=== PATIENT | female | born 1950 | race Caucasian/White ===

== ENCOUNTER → 2019-02-04 | Outpatient (CLI) | payer MEDICARE, MEDICAID ==
--- NOTE | 2019-02-04 14:35 | RADIOLOGY REPORT (SQ) ---
EXAM DESCRIPTION: CT CHEST WITHOUT COMPLETED DATE/TIME: 02/04/2019 1:51 pm REASON FOR STUDY: R91.8 OTHER NONSPECIFIC ABNORMAL FINDING OF LUNG FIELD R91.8 OTHER NONSPECIFIC AB NORMAL FINDING OF LUNG FIELD COMPARISON: CT chest 04/01/2014, 02/12/2013 TECHNIQUE: CT scan performed of the chest without intravenous contrast. Images reviewed with lung, soft tissue and bone windows. Reconstructed coronal and sagittal MPR images reviewed. All images st ored on PACS. All CT scanners at this facility use dose modulation, iterative reconstruction, and/or weight based d osing when appropriate to reduce radiation dose to as low as reasonably achievable (ALARA). [facility]: Dose Right [facility]: CareDose [facility]: Dose Right [facility]: Teradose 4D [facility]: FeZo RADIATION DOSE: CT Rad equipment meets quality standard of care and radiation dose reduction techniq ues were employed. CTDIvol: 7.5 mGy. DLP: 282 mGy-cm. mGy. LIMITATIONS: No technical limitations. FINDINGS: LUNGS AND PLEURA: There is patchy consolidation in the right posterior costophrenic sulcus , atelectasis versus pneumonia. Remainder of the lungs are hyperinflated and hyperlucent from obstructive disease. No other infiltra sherrie. Biapical pleuroparenchymal scarring. Airways are patent. No pleural effusion. No pneumothora x. HILAR AND MEDIASTINAL STRUCTURES: No identified masses or abnormal nodes. No obvious aneurysm. HEART AND VASCULAR STRUCTURES: No aneurysm. No pericardial effusion. Coronary artery calcifications UPPER ABDOMEN: No significant findings. Limited exam. THYROID AND OTHER SOFT TISSUES: 1 cm cyst right lower pole thyroid BONES: Multiple old healed right lateral rib fractures HARDWARE: None in the chest. OTHER: No other significant findings. IMPRESSION: Right basilar airspace disease in the lateral and posterior costophrenic sulcus TECHNICAL DOCUMENTATION: JOB ID: [id number] Quality ID # [id number]: Final reports with documentation of one or more dose reduction techniques (e.g., Au tomated exposure control, adjustment of the mA and/or kV according to patient size, use of iterative reconstruction technique) 2010 [employer] All Rights Reserved Reading location - IP/workstation name: [email or web address]
== END ==
LOC: RAD 16:26
PROVIDERS: ATTEND Internal Medicine Critical Care Medicine
DX: R91.8 Other nonspecific abnormal finding of lung field (principal)
CPT/HCPCS: 71250

== ENCOUNTER → 2019-02-06 | Outpatient (CLI) | payer MEDICARE, MEDICAID ==
[2019-02-06 11:51] LABS: ABSOLUTE BASOPHILS # (AUTO) 0.1 10^3/uL (0.0-0.2); ABSOLUTE EOSINOPHILS # (AUTO) 0.7 10^3/uL (0.0-0.6); ABSOLUTE LYMPHOCYTES (AUTO) 1.5 10^3/uL (0.5-4.7); ABSOLUTE MONOCYTES (AUTO) 0.7 10^3/uL (0.1-1.4); ABSOLUTE NEUT (AUTO) 8.4 10^3/uL (1.7-8.2); BASOPHILS % (AUTO) 0.4 % (0-2); EOSINOPHILS % (AUTO) 5.8 % (0-6); HEMATOCRIT 37.8 % (36.0-47.0); HEMOGLOBIN 12.3 g/dL (12.0-15.5); LYMPHOCYTES % (AUTO) 12.9 % (13-45); MEAN CORPUSCULAR HEMOGLOBIN 31.7 pg (27.0-33.4); MEAN CORPUSCULAR HGB CONC 32.5 g/dL (32.0-36.0); MEAN CORPUSCULAR VOLUME 97 fl (80-97); MONOCYTES % (AUTO) 6.3 % (3-13); PLATELET COUNT 328 10^3/uL (150-450); RED BLOOD COUNT 3.88 10^6/uL (3.72-5.28); RED CELL DISTRIBUTION WIDTH 13.6 % (11.5-14.0); SEGMENTED NEUTROPHILS % (AUTO) 74.6 % (42-78); TOTAL CELLS COUNTED % (AUTO) 100 %; WHITE BLOOD COUNT 11.3 10^3/uL (4.0-10.5)
== END ==
LOC: LAB 11:26
PROVIDERS: ATTEND Internal Medicine Geriatric Medicine
DX: J15.9 Unspecified bacterial pneumonia (principal); J45.909 Unspecified asthma, uncomplicated; R06.09 Other forms of dyspnea; J43.9 Emphysema, unspecified; R09.02 Hypoxemia; R91.8 Other nonspecific abnormal finding of lung field; R91.1 Solitary pulmonary nodule
CPT/HCPCS: 36415; 82785; 85025

== ENCOUNTER 2019-03-28 16:18 | Inpatient (IN) | payer MEDICARE, MEDICAID ==
[2019-03-28 16:44] LABS: ARTERIAL BLOOD BASE EXCESS 14.4 mmol/L; ARTERIAL BLOOD H2CO3 2.54 mmol/L (1.05-1.35); ARTERIAL BLOOD HCO3 43.8 mmol/L (20-24); ARTERIAL BLOOD PH 7.33 (7.35-7.45); ARTERIAL BLOOD PO2 84.1 mmHg (80-100); ARTERIAL BLOOD TOTAL CO2 46.3 mmol/L (21-25)
[2019-03-28] MEDS ORDERED: NORMAL SALINE 1000 ML 1,000 ML IV ONE (16:45)
[2019-03-28 16:46] LABS: ARTERIAL BLOOD FIO2 60%
--- NOTE | 2019-03-28 16:47 | RADIOLOGY REPORT (SQ) ---
EXAM DESCRIPTION: CHEST SINGLE VIEW COMPLETED DATE/TIME: 03/28/2019 4:38 pm REASON FOR STUDY: resp arrest COMPARISON: 03/24/2019 NUMBER OF VIEWS: One view. TECHNIQUE: Single frontal radiographic image of the chest acquired. LIMITATIONS: None. FINDINGS: LUNGS AND PLEURA: Stable in appearance. No consolidation or effusions. Probable scarring in the apices. MEDIASTINUM AND HILAR STRUCTURES: Stable heart size and mediastinal structures. HEART AND VASCULAR STRUCTURES: Stable appearance. BONES: No acute findings. HARDWARE: None in the chest. OTHER: No other significant finding. IMPRESSION: No acute findings in the chest. TECHNICAL DOCUMENTATION: JOB ID: [id number] [employer]- All Rights Reserved Reading location - IP/workstation name: [email or web address]
[2019-03-28 16:48] LABS: ARTERIAL BLOOD PCO2 84.5 mmHg (35-45)
[2019-03-28 17:03] LABS: ALANINE AMINOTRANSFERASE 370 U/L (9-52); ALBUMIN 3.7 g/dL (3.5-5.0); ALKALINE PHOSPHATASE 70 U/L (38-126); ASPARTATE AMINO TRANSFERASE 275 U/L (14-36); BILIRUBIN,DIRECT 0.2 mg/dL (0.0-0.4); BILIRUBIN,TOTAL 0.5 mg/dL (0.2-1.3); BLOOD UREA NITROGEN 26 mg/dL (7-20); CALCIUM 7.5 mg/dL (8.4-10.2); CHLORIDE 89 mmol/L (98-107); CREATINE KINASE 22 U/L (30-135); GLUCOSE 121 mg/dL (75-110); POTASSIUM 5.6 mmol/L (3.6-5.0); SODIUM 140.1 mmol/L (137-145); TOTAL PROTEIN 6.3 g/dL (6.3-8.2)
[2019-03-28 17:05] LABS: ABSOLUTE BASOPHILS # (AUTO) 0.1 10^3/uL (0.0-0.2); ABSOLUTE EOSINOPHILS # (AUTO) 0.1 10^3/uL (0.0-0.6); ABSOLUTE LYMPHOCYTES (AUTO) 1.1 10^3/uL (0.5-4.7); ABSOLUTE MONOCYTES (AUTO) 1.3 10^3/uL (0.1-1.4); ABSOLUTE NEUT (AUTO) 13.1 10^3/uL (1.7-8.2); BASOPHILS % (AUTO) 0.5 % (0-2); EOSINOPHILS % (AUTO) 0.6 % (0-6); HEMATOCRIT 36.3 % (36.0-47.0); HEMOGLOBIN 11.4 g/dL (12.0-15.5); LYMPHOCYTES % (AUTO) 6.8 % (13-45); MEAN CORPUSCULAR HEMOGLOBIN 30.7 pg (27.0-33.4); MEAN CORPUSCULAR HGB CONC 31.4 g/dL (32.0-36.0); MEAN CORPUSCULAR VOLUME 98 fl (80-97); MONOCYTES % (AUTO) 8.5 % (3-13); PLATELET COUNT 288 10^3/uL (150-450); RED BLOOD COUNT 3.72 10^6/uL (3.72-5.28); RED CELL DISTRIBUTION WIDTH 13.9 % (11.5-14.0); SEGMENTED NEUTROPHILS % (AUTO) 83.6 % (42-78); TOTAL CELLS COUNTED % (AUTO) 100 %; WHITE BLOOD COUNT 15.7 10^3/uL (4.0-10.5)
[2019-03-28 17:15] LABS: CREATINE KINASE MB 0.52 ng/mL (<4.55); TROPONIN I 0.031 ng/mL
[2019-03-28 17:16] LABS: ANION GAP 7 (5-19)
[2019-03-28 17:17] LABS: CARBON DIOXIDE 44 mmol/L (22-30)
[2019-03-28 17:21] LABS: APPEARANCE,URINE SLIGHTLY-CLOUDY; BILIRUBIN,URINE NEGATIVE (NEGATIVE); COLOR,URINE YELLOW; GLUCOSE, URINE NEGATIVE (NEGATIVE); KETONES,URINE NEGATIVE (NEGATIVE); LEUKOCYTE ESTERASE,URINE NEGATIVE (NEGATIVE); NITRITE,URINE NEGATIVE (NEGATIVE); PROTEIN,URINE >=500 mg/dL (NEGATIVE); URINE SPECIFIC GRAVITY 1.022; UROBILINOGEN,URINE NEGATIVE mg/dL (<2.0)
[2019-03-28] MEDS ORDERED: METHYLPREDNISOLONE INJ 125 MG/2 ML SDV IV ONE (18:10)
[2019-03-28] MEDS ORDERED: IPRATROPIUM/ALBUTEROL 0.5-2.5 MG/3 ML AMPUL NEB ONE (18:10)
--- NOTE | 2019-03-28 19:05 | RADIOLOGY REPORT (SQ) ---
EXAM DESCRIPTION: CT ABD/PELVIS NO ORAL OR IV COMPLETED DATE/TIME: 03/28/2019 6:50 pm REASON FOR STUDY: RUQ trauma 5days ago, new LFT elevation COMPARISON: None. TECHNIQUE: CT scan of the abdomen and pelvis performed without intravenous or oral contrast. Images reviewed with lung, soft tissue, and bone windows. Reconstructed coronal and sagittal MPR images revi ewed. All images stored on PACS. All CT scanners at this facility use dose modulation, iterative reconstruction, and/or weight based d osing when appropriate to reduce radiation dose to as low as reasonably achievable (ALARA). [facility]: Dose Right [facility]: CareDose [facility]: Dose Right [facility]: Teradose 4D [facility]: Smart uTaP RADIATION DOSE: CT Rad equipment meets quality standard of care and radiation dose reduction techniq ues were employed. CTDIvol: 10.5 mGy. DLP: 520 mGy-cm.mGy. LIMITATIONS: None. FINDINGS: LOWER CHEST: Small right pleural effusion and basilar subsegmental atelectasis. There are areas of mucous plugging in the right lower lobe and scattered areas of tree-in-bud opacities -small airways disease. NON-CONTRASTED LIVER, SPLEEN, ADRENALS: Evaluation limited by lack of IV contrast. No identified sign ificant masses. PANCREAS: No masses. No peripancreatic inflammatory changes. GALLBLADDER: No calcified stones. No inflammatory changes to suggest cholecystitis. RIGHT KIDNEY AND URETER: No cysts identified. No solid masses. No calcified stones. No hydronephrosis or hydroureter. LEFT KIDNEY AND URETER: No cysts identified. No solid masses. No calcified stones. No hydronephrosis or hydroureter. AORTA AND RETROPERITONEUM: No aneurysm. No retroperitoneal masses or adenopathy. BOWEL AND PERITONEAL CAVITY: No obvious masses or inflammatory changes. No free fluid. APPENDIX: Normal. PELVIS, BLADDER, AND ABDOMINAL WALL:Prior hysterectomy No free fluid. Rosales catheter decompresses th e bladder. BONES: No acute findings. OTHER: No other significant finding. IMPRESSION: Small right pleural effusion and basilar subsegmental atelectasis. There are areas of m ucous plugging in the right lower lobe and scattered areas of tree-in-bud opacities -small airways di sease. No acute findings in the abdomen or pelvis. TECHNICAL DOCUMENTATION: JOB ID: [id number] Quality ID # [id number]: Final reports with documentation of one or more dose reduction techniques (e.g., Au tomated exposure control, adjustment of the mA and/or kV according to patient size, use of iterative reconstruction technique) 2010 [employer]- All Rights Reserved Reading location - IP/workstation name: [email or web address]
--- NOTE | 2019-03-28 19:37 | ER Document Report ---
Entered by AARON COREY SCRIBE 03/28/19 1629 Acting as scribe for:WAYNE ALTAMIRANO MD ED General - General Stated Complaint: RESPIRATORY DISTRESS Time Seen by Provider: 03/28/19 16:22 Primary Care Provider: SUE ANDERSON MD [Primary Care Provider] - Follow up as needed Mode of Arrival: Medic Information source: Emergency Med Personnel Notes: Patient is a 68-year-old female with COPD( on BiPAP at home) presents to the emergency department via EMS due to being found unresponsive. EMS states the patient was found by her son unresponsive in her recliner chair. EMS states upon arrival to the scene, the patient was laying on the floor, on her at home BiPAP machine with an oxygen saturation rate of 55%. They state the patient was recently in this emergency department due to a COPD exacerbation and weakness and was discharged home with instructions to follow up with her PCP, Dr. Anderson. Son reports the patient was sitting in recliner in her "small home" when she was found unresponsive. Son states the patient opened her eyes when he called her name. The son states that she does want to be on a ventilator if it is for a short- term to help her through a COPD exacerbation. When she was seen here on 03/24/2019, a blood gas showed a PCO2 of 94 and a PO2 of 94 with a pH of 7.37 on oxygen and BiPAP. That was recorded reported as normal for her. TRAVEL OUTSIDE OF THE [place] IN LAST 30 DAYS: No - Related Data Allergies/Adverse Reactions: Sulfa (Sulfonamide Antibiotics) Allergy (Verified 05/03/13 17:10) hives/swelling Past Medical History - General Information source: Emergency Med Personnel - Social History Smoking Status: Former Smoker Family History: Reviewed & Not Pertinent - Past Medical History Cardiac Medical History: Reports: Hx Hypercholesterolemia, Hx Hypertension Pulmonary Medical History: Reports: Hx COPD Endocrine Medical History: Reports: Hx Hypothyroidism GI Medical History: Reports: Hx Gastroesophageal Reflux Disease Musculoskeletal Medical History: Reports Hx Arthritis - Immunizations Hx Diphtheria, Pertussis, Tetanus Vaccination: No Hx Pneumococcal Vaccination: 11/26/09 Review of Systems - Review of Systems -: Yes ROS unobtainable due to patient's medical condition Physical Exam - Vital signs Vitals: Resp BP Pulse Ox 23 H 154/143 H 94 03/28/19 16:25 03/28/19 16:25 03/28/19 16:25 - Notes Notes: GENERAL: Awakens and complains with sternal rub. HEAD: Normocephalic, atraumatic. EYES:Left cornea is cloudy, family reports this is chornic. Right pupil is equal, round, and reactive to light. Extraocular movements intact. ENT: Oral mucosa moist, tongue midline. Nasal trumpet in right nostril. NECK: Full range of motion. Supple. Trachea midline. LUNGS: Nasal trumpet in right nostril. Immediately placed on BiPAP. Wheezes and rhonchi. HEART: Regular rate and rhythm. No murmurs, gallops, or rubs. ABDOMEN: Soft, obese non-tender. Non-distended. Bowel sounds present in all 4 quadrants. No guarding, rigidity, or rebound. EXTREMITIES: Moves all 4 extremities spontaneously. Edema to the RLE. NEUROLOGICAL: Awakens and complains with sternal rub. PSYCH: Normal affect, normal mood. SKIN: Warm, dry. Old bruising across right lower abdomen and right anterior lateral leg. Course - Re-evaluation Re-evalutation: 03/28/19 18:15 The patient's liver enzymes are acutely elevated today. Her son reports that she fell while going to a store and striking her abdomen about 5 days ago. He states it was the same day that she was seen here in the emergency room but was after she has gone home. - Vital Signs Vital signs: Temp Pulse Resp BP Pulse Ox 20 94/54 L 97 03/28/19 19:30 03/28/19 19:16 03/28/19 19:30 - Laboratory Result Diagrams: 03/28/19 16:25 03/28/19 16:25 Laboratory results interpreted by me: 03/28/19 03/28/19 03/28/19 16:25 16:25 16:25 WBC 15.7 H Hgb 11.4 L MCV 98 H MCHC 31.4 L Seg Neutrophils % 83.6 H Lymphocytes % 6.8 L Absolute Neutrophils 13.1 H Carbonic Acid 2.54 H ABG pH 7.33 L ABG pCO2 84.5 H* ABG HCO3 43.8 H ABG Total CO2 46.3 H Potassium 5.6 H Chloride 89 L Carbon Dioxide 44 H* BUN 26 H Glucose 121 H Calcium 7.5 L AST 275 H ALT 370 H Creatine Kinase 22 L Urine Protein 03/28/19 16:53 WBC Hgb MCV MCHC Seg Neutrophils % Lymphocytes % Absolute Neutrophils Carbonic Acid ABG pH ABG pCO2 ABG HCO3 ABG Total CO2 Potassium Chloride Carbon Dioxide BUN Glucose Calcium AST ALT Creatine Kinase Urine Protein >=500 H - Diagnostic Test Radiology reviewed: Image reviewed, Reports reviewed - Chest x-ray does not show any acute changes. Noncontrasted CT scan of the abdomen pelvis does not show any acute abnormality in the abdomen or pelvis. Shows the chronic COPD changes that she is known to have an lower chest. - EKG Interpretation by Me EKG shows normal: Sinus rhythm, [place], Intervals, QRS Complexes, ST-T Waves Rate: Tachycardia - 118 Rhythm: APC's When compared to previous EKG there are: No significant change - Consults Dr. Brock Time consulted: 18:01 Consulted provider: will see as inpatient Dr. Bush Time consulted: 17:35 Consulted provider: will see as inpatient Discharge - Discharge Clinical Impression: COPD with acute exacerbation, End stage COPD, Hypoxemia requiring supplemental oxygen Condition: Fair Disposition: ADMITTED INPATIENT Admitting Provider: Janice - Dr. Brock is covering this weekend Unit Admitted: IMCU Referrals: SUE ANDERSON MD [Primary Care Provider] - Follow up as needed Scribe Attestation: 03/28/19 18:11 I personally performed the services described in the documentation, reviewed and edited the documentation which was dictated to the scribe in my presence, and it accurately records my words and actions. I personally performed the services described in the documentation, reviewed and edited the documentation which was dictated to the scribe in my presence, and it accurately records my words and actions.
[2019-03-28] MEDS: NORMAL SALINE 1000 ML 1,000 ML IV PRN (20:10)
[2019-03-28] MEDS: IPRATROPIUM/ALBUTEROL 0.5-2.5 MG/3 ML AMPUL NEB SCH (21:06)
[2019-03-28] MEDS ORDERED: CEFEPIME 2 GM/D5W RTU 2 GM/50 ML RTUPB IV SCH (22:00)
[2019-03-28] MEDS ORDERED: METHYLPREDNISOLONE INJ 40 MG/1 ML SDV IV SCH (22:00)
[2019-03-28] MEDS: CEFEPIME HCL 2 GM in DEXTROSE 5%-WATER 50 ML IV SCH (22:17)
[2019-03-29] MEDS: METHYLPREDNISOLONE INJ 125 MG/2 ML SDV IV SCH ×3 (02:05→18:22)
[2019-03-29 05:59] LABS: HEMATOCRIT 33.1 % (36.0-47.0); HEMOGLOBIN 10.6 g/dL (12.0-15.5); MEAN CORPUSCULAR HEMOGLOBIN 31.3 pg (27.0-33.4); MEAN CORPUSCULAR HGB CONC 31.9 g/dL (32.0-36.0); MEAN CORPUSCULAR VOLUME 98 fl (80-97); PLATELET COUNT 224 10^3/uL (150-450); RED BLOOD COUNT 3.38 10^6/uL (3.72-5.28); RED CELL DISTRIBUTION WIDTH 13.7 % (11.5-14.0); WHITE BLOOD COUNT 9.2 10^3/uL (4.0-10.5)
[2019-03-29 06:15] LABS: ALANINE AMINOTRANSFERASE 364 U/L (9-52); ALBUMIN 3.2 g/dL (3.5-5.0); ALKALINE PHOSPHATASE 61 U/L (38-126); ASPARTATE AMINO TRANSFERASE 397 U/L (14-36); BILIRUBIN,DIRECT 0.3 mg/dL (0.0-0.4); BILIRUBIN,TOTAL 0.3 mg/dL (0.2-1.3); BLOOD UREA NITROGEN 28 mg/dL (7-20); CHLORIDE 96 mmol/L (98-107); GLUCOSE 165 mg/dL (75-110); SODIUM 142.3 mmol/L (137-145)
[2019-03-29 06:26] LABS: ARTERIAL BLOOD BASE EXCESS 12.3 mmol/L; ARTERIAL BLOOD H2CO3 2.62 mmol/L (1.05-1.35); ARTERIAL BLOOD HCO3 41.8 mmol/L (20-24); ARTERIAL BLOOD O2 SATURATION 89.2 % (94-98); ARTERIAL BLOOD PO2 64.9 mmHg (80-100); ARTERIAL BLOOD TOTAL CO2 44.5 mmol/L (21-25)
[2019-03-29 06:27] LABS: ARTERIAL BLOOD FIO2 45%
[2019-03-29 06:28] LABS: ARTERIAL BLOOD PCO2 87.1 mmHg (35-45)
[2019-03-29 06:29] LABS: POTASSIUM 4.5 mmol/L (3.6-5.0)
[2019-03-29 06:31] LABS: CARBON DIOXIDE 42 mmol/L (22-30)
[2019-03-29 06:43] LABS: ANION GAP 4 (5-19)
[2019-03-29 06:45] LABS: ABSOLUTE LYMPHOCYTES# (MANUAL) 0.5 10^3/uL (0.5-4.7); ABSOLUTE NEUTROPHILS# (MANUAL) 8.7 10^3/uL (1.7-8.2); BASOPHILS % (MANUAL) 0 % (0-2); EOSINOPHILS % (MANUAL) 0 % (0-6); LYMPHOCYTES % (MANUAL) 5 % (13-45); MONOCYTES % (MANUAL) 0 % (3-13); SEGMENTED NEUTROPHILS % (MAN) 95 % (42-78); TOTAL CELLS COUNTED 100; TOXIC GRANULATION SLIGHT; TOXIC VACUOLATION PRESENT
[2019-03-29 06:47] LABS: OVALOCYTES SLIGHT; PLATELET COMMENT ADEQUATE; POIKILOCYTOSIS SLIGHT
[2019-03-29] MEDS: PANTOPRAZOLE SODIUM 20 MG TABLET.DR PO SCH (07:15)
[2019-03-29] MEDS: IPRATROPIUM/ALBUTEROL 0.5-2.5 MG/3 ML AMPUL NEB SCH ×3 (09:18→19:50)
--- NOTE | 2019-03-29 09:39 | PDOC H&P ---
History of Present Illness Admission Date/PCP: 03/28/19 19:43 SUE ANDERSON Patient complains of: Respiratory distress History of Present Illness: JERMAIN LIN is a 68 year old female This is a 68-year-old female a patient of Dr. Anderson currently on a BiPAP at home presents in emergency department via EMS doing fine to be unresponsive. EMS state that the patient was found to be her son unresponsive in her recliner chair. EMS stated upon arrival to the skin the patient was lying on the floor on her BiPAP machine with the oxygen saturations rate is 55 Listed the patient was recently in the emergency department due to the COPD acute exacerbations and the weakness and the discharge home patient I will look at the reviewed the records Is a noncompliance on a BiPAP Patient also see a pulmonary Dr. Kelly Patient when I saw it in the floor alert awake oriented talking and eating without any problem and patient's son on the bedside discuss with the patient's pulmonary and suggest to continues to BiPAP he saw the patient's and suggested no need to change anything Discussed the lab work with him today Still complaining some cough congestions Past Medical History Cardiac Medical History: Reports: Hyperlipidema, Hypertension Pulmonary Medical History: Reports: Chronic Obstructive Pulmonary Disease (COPD) Endocrine Medical History: Reports: Hypothyroidism GI Medical History: Reports: Gastroesophageal Reflux Disease Musculoskeltal Medical History: Reports: Arthritis Psychiatric Medical History: Denies: Depression Hematology: Reports: Anemia Social History Smoking Status: Former Smoker Number of Years Smokin Frequency of Alcohol Use: None Hx Recreational Drug Use: Yes Drugs: None Hx Prescription Drug Abuse: No - Advance Directive Resuscitation Status: Full Code Family History Family History: Reviewed & Not Pertinent Parental Family History Reviewed: Yes Children Family History Reviewed: Yes Sibling(s) Family History Reviewed.: Yes Medication/Allergy Home Medications: Albuterol Sulfate 4 mg PO TID 03/11/19 Albuterol Sulfate [Ventolin Hfa 8 gm Mdi (1 Mdi/ER Disp)] 2 puff IH Q6 03/11/19 Alendronate Sodium [Fosamax 70 mg Tablet] 70 mg PO GALAN@0800 03/11/19 Benzonatate [Tessalon Perle 100 mg Capsule] 100 mg PO TIDP PRN 03/11/19 Bupropion HCl [Wellbutrin 75 mg Tablet] 150 mg PO Q12 03/11/19 Docusate Sodium [Colace 100 mg Capsule] 100 mg PO BID 03/11/19 Gabapentin [Neurontin 300 mg Capsule] 300 mg PO Q8 03/11/19 Guaifenesin [Mucinex Sr 600 mg Tablet.sa] 600 mg PO Q12 03/11/19 Ipratropium/Albuterol Sulfate [Combivent Respimat 4 gm Mdi] 1 puff IH Q6 03/11/19 Ipratropium/Albuterol Sulfate [Duoneb 3 ml Ampul] 3 ml NEB Q6 03/11/19 Isosorbide Mononitrate [Imdur 30 mg Tablet.er] 30 mg PO DAILY 03/11/19 Montelukast Sodium [Singulair 10 mg Tablet] 10 mg PO DAILY 03/11/19 Naloxone HCl [Evzio] 2 mg IM .EVERY 3 MIN PRN 03/11/19 [place]-3 Acid Ethyl Esters [Lovaza 1 gm Capsule] 1 gm PO DAILY 03/11/19 Omeprazole 40 mg PO DAILY 03/11/19 Oxycodone HCl [Oxycontin] 20 mg PO Q12 03/11/19 Oxycodone HCl/Acetaminophen [Percocet 7.5-325 mg Tablet] 1 tab PO Q6HP PRN 03/11 Tiotropium [place] [Spiriva Respimat] 1 puff IH BID 03/11/19 Fluticasone/Vilanterol [Breo 200-25 Mcg Ellipta 14 Dose/Dpi] 1 inh IH DAILY #1 inhaler 03/21/19 Nystatin [Mycostatin 500,000 Unit/5 ml Susp Udcup] 100,000 unit PO Q6 #30 udc 03/21/19 Prednisone [Deltasone 5 mg Tablet] 5 mg PO ASDIR PRN #43 tablet 03/21/19 Cephalexin Monohydrate [Keflex 500 mg Capsule] 500 mg PO BID 7 Days #14 capsule 03/24/19 Aspirin [Ecotrin] 81 mg PO DAILY 03/28/19 Allergies/Adverse Reactions: Sulfa (Sulfonamide Antibiotics) Allergy (Verified 05/03/13 17:10) hives/swelling Review of Systems Constitutional: ABSENT: chills, fever(s), headache(s), weight gain, weight loss Eyes: ABSENT: visual disturbances Ears: ABSENT: hearing changes Cardiovascular: ABSENT: chest pain, dyspnea on exertion, edema, orthropnea, palpitations Respiratory: ABSENT: cough, hemoptysis Gastrointestinal: ABSENT: abdominal pain, constipation, diarrhea, hematemesis, hematochezia, nausea, vomiting Genitourinary: ABSENT: dysuria, hematuria Musculoskeletal: ABSENT: joint swelling Integumentary: ABSENT: rash, wounds Neurological: ABSENT: abnormal gait, abnormal speech, confusion, dizziness, focal weakness, syncope Psychiatric: ABSENT: anxiety, depression, homidical ideation, suicidal ideation Endocrine: ABSENT: cold intolerance, heat intolerance, menstrual abnormalities, polydipsia, polyuria Hematologic/Lymphatic: ABSENT: easy bleeding, easy bruising, lymphadenopathy Physical Exam Vital Signs: Temp Pulse Resp BP Pulse Ox 97.4 F 86 20 107/55 L 94 03/29/19 07:46 03/29/19 07:46 03/29/19 07:46 03/29/19 07:46 03/29/19 07:46 Pulse Oximeter Continuous Start: 03/29/19 00:29 Freq: RTQ4 Status: Active Protocol: Document 03/29/19 04:00 LDA (Rec: 03/29/19 04:06 LDA [id number]) Pulse Oximetry Assessment Oxygen Saturation (92-100) 94 Oxygen Delivery Method Bi-pap Fraction of Inspired Oxygen (FIO2) 45 Equipment Usage Initial Set Up Continuous Pulse Oximeter 24 Hour Charge Charge Now Continuous SpO2 Machine # [email or web address] Intake & Output 03/28/19 03/29/19 03/30/19 06:59 06:59 06:59 Intake Total 1050 Output Total 390 Balance 660 Weight 64.2 kg General appearance: PRESENT: no acute distress, well-developed, well-nourished Head exam: PRESENT: atraumatic, normocephalic Eye exam: PRESENT: conjunctiva pink, EOMI, PERRLA. ABSENT: scleral icterus Ear exam: PRESENT: normal external ear exam Mouth exam: PRESENT: moist, tongue midline Neck exam: PRESENT: full ROM. ABSENT: carotid bruit, JVD, lymphadenopathy, thyromegaly Respiratory exam: PRESENT: clear to auscultation gurvinder Cardiovascular exam: PRESENT: RRR. ABSENT: diastolic murmur, rubs, systolic murmur Vascular exam: PRESENT: normal capillary refill GI/Abdominal exam: PRESENT: normal bowel sounds, soft. ABSENT: distended, guarding, mass, organolmegaly, rebound, tenderness Rectal exam: PRESENT: deferred Extremities exam: ABSENT: pedal edema Neurological exam: PRESENT: alert, awake, oriented to person, oriented to place, oriented to time, oriented to situation, CN II-XII grossly intact. ABSENT: motor sensory deficit Psychiatric exam: PRESENT: appropriate affect, normal mood. ABSENT: homicidal ideation, suicidal ideation Skin exam: PRESENT: dry, intact, warm. ABSENT: cyanosis, rash Results Laboratory Results: 03/29/19 05:21 03/29/19 05:21 03/28/19 03/28/19 03/28/19 16:25 16:25 16:25 WBC 15.7 H RBC 3.72 Hgb 11.4 L Hct 36.3 MCV 98 H MCH 30.7 MCHC 31.4 L RDW 13.9 Plt Count 288 Seg Neutrophils % 83.6 H Lymphocytes % 6.8 L Monocytes % 8.5 Eosinophils % 0.6 Basophils % 0.5 Absolute Neutrophils 13.1 H Absolute Lymphocytes 1.1 Absolute Monocytes 1.3 Absolute Eosinophils 0.1 Absolute Basophils 0.1 Carbonic Acid HCO3/H2CO3 Ratio ABG pH ABG pCO2 ABG pO2 ABG HCO3 ABG O2 Saturation ABG Base Excess FiO2 Sodium 140.1 Potassium 5.6 H Chloride 89 L Carbon Dioxide 44 H* Anion Gap 7 BUN 26 H Creatinine 0.63 Est GFR ( Amer) > 60 Est GFR (Non-Af Amer) > 60 Glucose 121 H Lactic Acid 1.3 Calcium 7.5 L Magnesium Total Bilirubin 0.5 AST 275 H ALT 370 H Alkaline Phosphatase 70 Total Protein 6.3 Albumin 3.7 Urine Color Urine Appearance Urine pH Ur Specific [place] Urine Protein Urine Glucose (UA) Urine Ketones Urine Blood Urine Nitrite Ur Leukocyte Esterase Urine WBC (Auto) Urine RBC (Auto) 03/28/19 03/28/19 03/29/19 16:25 16:53 05:21 WBC 9.2 RBC 3.38 L Hgb 10.6 L Hct 33.1 L MCV 98 H MCH 31.3 MCHC 31.9 L RDW 13.7 Plt Count 224 Seg Neutrophils % Not Reportable Lymphocytes % Not Reportable Monocytes % Not Reportable Eosinophils % Not Reportable Basophils % Not Reportable Absolute Neutrophils Not Reportable Absolute Lymphocytes Not Reportable Absolute Monocytes Not Reportable Absolute Eosinophils Not Reportable Absolute Basophils Not Reportable Carbonic Acid 2.54 H HCO3/H2CO3 Ratio 17:1 ABG pH 7.33 L ABG pCO2 84.5 H* ABG pO2 84.1 ABG HCO3 43.8 H ABG O2 Saturation 95.0 ABG Base Excess 14.4 FiO2 60% Sodium Potassium Chloride Carbon Dioxide Anion Gap BUN Creatinine Est GFR ( Amer) Est GFR (Non-Af Amer) Glucose Lactic Acid Calcium Magnesium Total Bilirubin AST ALT Alkaline Phosphatase Total Protein Albumin Urine Color YELLOW Urine Appearance SLIGHTLY-CLOUDY Urine pH 6.0 Ur Specific [place] 1.022 Urine Protein >=500 H Urine Glucose (UA) NEGATIVE Urine Ketones NEGATIVE Urine Blood NEGATIVE Urine Nitrite NEGATIVE Ur Leukocyte Esterase NEGATIVE Urine WBC (Auto) 2 Urine RBC (Auto) 2 03/29/19 03/29/19 05:21 06:05 WBC RBC Hgb Hct MCV MCH MCHC RDW Plt Count Seg Neutrophils % Lymphocytes % Monocytes % Eosinophils % Basophils % Absolute Neutrophils Absolute Lymphocytes Absolute Monocytes Absolute Eosinophils Absolute Basophils Carbonic Acid 2.62 H HCO3/H2CO3 Ratio 15:1 ABG pH 7.30 L ABG pCO2 87.1 H* ABG pO2 64.9 L ABG HCO3 41.8 H ABG O2 Saturation 89.2 L ABG Base Excess 12.3 FiO2 45% Sodium 142.3 Potassium 4.5 D Chloride 96 L Carbon Dioxide 42 H* Anion Gap 4 L BUN 28 H Creatinine 0.31 L Est GFR ( Amer) > 60 Est GFR (Non-Af Amer) > 60 Glucose 165 H Lactic Acid Calcium 7.0 L* Magnesium 2.0 Total Bilirubin 0.3 AST 397 H ALT 364 H Alkaline Phosphatase 61 Total Protein 6.0 L Albumin 3.2 L Urine Color Urine Appearance Urine pH Ur Specific [place] Urine Protein Urine Glucose (UA) Urine Ketones Urine Blood Urine Nitrite Ur Leukocyte Esterase Urine WBC (Auto) Urine RBC (Auto) 03/28/19 03/28/19 16:25 16:25 Creatine Kinase 22 L CK-MB (CK-2) 0.52 Troponin I 0.031 Impressions: Chest X-Ray 03/28/19 16:22 IMPRESSION: No acute findings in the chest. Abdomen/Pelvis CT 03/28/19 18:19 IMPRESSION: Small right pleural effusion and basilar subsegmental atelectasis. There are areas of mucous plugging in the right lower lobe and scattered areas of tree-in-bud opacities -small airways disease. No acute findings in the abdomen or pelvis. Assessment & Plan - Diagnosis (1) COPD with acute exacerbation Is this a current diagnosis for this admission?: Yes Plan: Continues to nebulizer treatment and IV Solu-Medrol (2) End stage COPD Is this a current diagnosis for this admission?: Yes Plan: Continues to current management (3) Anemia Qualifiers: Anemia type: unspecified type Qualified Code(s): D64.9 - Anemia, uns pecified Is this a current diagnosis for this admission?: Yes (4) Chronic respiratory failure with hypoxia and hypercapnia Is this a current diagnosis for this admission?: Yes Plan: Continue the BiPAP (5) GERD (gastroesophageal reflux disease) Qualifiers: Esophagitis presence: without esophagitis Qualified Code(s): K21.9 - Gastr o-esophageal reflux disease without esophagitis Is this a current diagnosis for this admission?: Yes (6) HLD (hyperlipidemia) Qualifiers: Hyperlipidemia type: unspecified Qualified Code(s): E78.5 - Hyperlipidemia, unspecified Is this a current diagnosis for this admission?: Yes (7) HTN (hypertension) Qualifiers: Hypertension type: essential hypertension Qualified Code(s): I10 - Essential (primary) hypertension Is this a current diagnosis for this admission?: Yes - Time Time Spent: 30 to 50 Minutes Medications reviewed and adjusted accordingly: Yes Anticipated discharge: Home Within: Other - Inpatient Certification Based on my medical assessment, after consideration of the patient's comorbidities, presenting symptoms, or acuity I expect that the services needed warrant INPATIENT care.: Yes I certify that my determination is in accordance with my understanding of Medicare's requirements for reasonable and necessary INPATIENT services [42 CFR 412.3e].: Yes Medical Necessity: Significant Comorbidiites Make Outpatient Treatment Too Risky, Need Close Monitoring Due to Risk of Patient Decompensation Post Hospital Care: D/C Poke In Documentation - Plan Summary Plan Summary: Continues to BiPAP Continue some nebulizer treatments Follow with the pulmonary Discussed with the son on the bedside
[2019-03-29] MEDS: FLUTICASONE/VILANTEROL 200-25 MCG/DOSE IH SCH (10:21)
[2019-03-29] MEDS: CEFEPIME HCL 2 GM in DEXTROSE 5%-WATER 50 ML IV SCH ×2 (10:21→21:37)
[2019-03-29] MEDS: ENOXAPARIN SODIUM INJ 30 MG/0.3 ML DISP.SYRIN SUBCUT SCH (10:22)
[2019-03-29] MEDS: TIOTROPIUM BROMIDE DPI 5 CAP/KIT (18 MCG/CAP) IH SCH (10:22)
[2019-03-29] MEDS: DOCUSATE SODIUM 100 MG CAPSULE PO SCH ×2 (10:22→17:25)
--- NOTE | 2019-03-29 11:14 | EKG REPORT ---
SEVERITY:- ABNORMAL ECG - SINUS TACHYCARDIA MULTIPLE ATRIAL PREMATURE COMPLEXES PROBABLE POSTERIOR INFARCT : Confirmed by: Jordon Harris 29-Mar-2019 11:13:42
[2019-03-29] MEDS: ACETAMINOPHEN 325 MG TABLET PO PRN (11:53)
[2019-03-29] MEDS: NORMAL SALINE 1000 ML 1,000 ML IV PRN (11:53)
[2019-03-29] MEDS: ROFLUMILAST 500 MCG TABLET PO SCH (17:25)
[2019-03-29] MEDS: THEOPHYLLINE ANHYDROUS 100 MG TAB.SR.12H PO SCH (18:23)
--- NOTE | 2019-03-30 01:04 | CONSULTATION REPORT E ---
Consultation Report NAME: JERMAIN LIN : 1950 AGE: 68Y DATE: 03/29/2019 308 A TO: MICHELL KOROMA M.D. FROM: SUE ANDERSON M.D. Requesting Physician HISTORY OF PRESENT ILLNESS: Patient is a 68-year-old female who came in yesterday for increased shortness of breath, altered mental status. Patient was found at home, while on BiPAP, by son, unresponsive. The son called EMS and patient was noted saturating about 55% on BiPAP machine. Patient was brought to the emergency room and patient became awake, alert, oriented and talking; however, patient was admitted because of respiratory acidosis with a pCO2 of 84, but the pH was 7.3, which suggests compensated chronic respiratory acidosis with a good oxygen saturation, with an ABG pO2 of 84 on 50% FiO2. Patient was placed on BiPAP last night, appeared to be doing well. No vomiting, no chest pain, no nausea or diarrhea. Patient was started on Breo inhaler 200, Spiriva inhaler and nebulizer treatment, and Solu-Medrol IV 60 mg q.8 hours. PAST MEDICAL HISTORY: 1. Hyperlipidemia. 2. Hypertension. 3. COPD. 4. Hypothyroidism. 5. Gastroesophageal reflux disease. 6. Arthritis. 7. Anemia. SOCIAL HISTORY: Former smoker. Used to smoke 1 pack a day for 45 years. Denies alcohol abuse, illicit drug use. FAMILY HISTORY: Reviewed. MEDICATIONS: 1. Albuterol nebulizer treatment. 2. Ventolin inhaler. 3. Fosamax. 4. Tessalon Perles. 5. Wellbutrin. 6. Colace. 7. Gabapentin. 8. Mucinex. 9. Combivent inhaler. 10. DuoNeb nebulizer. 11. *------* nitrate. 12. Singulair. 13. Naloxone. 14. Lovaza. 15. Omeprazole. 16. Oxycodone. 17. Spiriva inhaler. 18. Breo 200. 19. Prednisone 5 mg. 20. Keflex 100 mg b.i.d. for 7 days. ALLERGIES: SULFA. REVIEW OF SYSTEMS: CONSTITUTIONAL: No fever or chills. EYES: No jaundice or pallor or eye pain. EARS, NOSE AND THROAT: No ear drainage. No nasal discharge. RESPIRATORY: Complains of increased shortness of breath. Denies any purulent sputum production or hemoptysis. CARDIAC: No chest pain, angina, tachyarrhythmias or palpitations. GI: No nausea, vomiting, diarrhea. : No dysuria, hematuria. EXTREMITIES: No joint swelling. PHYSICAL EXAMINATION: GENERAL: Patient is awake, alert, oriented x3. VITAL SIGNS: Temperature of 97.4 degrees Fahrenheit, blood pressure of 107/55, heart rate of 93, saturation is 100% on FiO2 of 40% and BiPAP of 12/6 and respiratory rate of 8. EYES: No jaundice or pallor. EARS, NOSE AND THROAT: No ear drainage noted. No nasal discharge. CHEST AND LUNGS: No wheezing, no rhonchi, no coarse crackles. CARDIOVASCULAR: S1, S2 distinct. Normal rate, regular rhythm. ABDOMEN: Flabby. Positive bowel sounds. Soft, nondistended, nontender. EXTREMITIES: No joint swelling, no cellulitis. LABORATORY DATA: CBC done today showed white count of 9.2, hemoglobin is 10.6, hematocrit is 33.1, platelet count is 224,000. ABG done at 6:00 this morning showed pH of 7.3, pCO2 of 87.1, pO2 is 84.9. ABG saturation is 89.2 on 45% FiO2. Chemistry today showed sodium is 142, potassium is 4.5, chloride 96, CO2 is 42. BUN 28, creatinine 0.31, glucose 155. Calcium is 7, magnesium is 2. SGOT is 297, SGPT is 354. Total protein is 6 and albumin is 3.2. ASSESSMENT: 1. VERY SEVERE END-STAGE CHRONIC OBSTRUCTIVE PULMONARY DISEASE IN ACUTE EXACERBATION REQUIRING BIPAP THERAPY, CURRENTLY IMPROVING. 2. PNEUMONIA. 3. ALTERED MENTAL STATUS, APPEARED TO BE IMPROVED. PLAN/RECOMMENDATIONS: 1. Will continue the Breo inhaler 200 mcg 1 puff once daily. Continue the Spiriva inhaler 1 capsule daily. Continue DuoNeb nebulizer treatment every 6 hours. Continue with Solu-Medrol 50 mg IV q.8. 2. GI prophylaxis, Protonix 20 mg b.i.d. 3. Recommend Daliresp 500 mcg tablet p.o. daily. 4. Start theophylline 100 mg tablet p.o. daily. 5. Continue IV antibiotic, cefepime, 2 grams IV q.12. 6. DVT prophylaxis, Lovenox 30 mg subcutaneously daily. 7. Patient to have nasal oxygen cannula 3 to 4 liters and titrate to keep saturation 91% to 95% when eating and when awake, and maintain BiPAP on the same settings when sleeping or when becoming more short of breath. DICTATING PHYSICIAN: MICHELL KOROMA MD,SANDRA,MPH [id number] PHY#: [id number] ID: [id number] JOB#: [id number] ACCT: [id number] cc:MICHELL KOROMA M.D. > MTDD
[2019-03-30] MEDS: METHYLPREDNISOLONE INJ 125 MG/2 ML SDV IV SCH ×2 (01:18→10:48)
[2019-03-30] MEDS: PANTOPRAZOLE SODIUM 20 MG TABLET.DR PO SCH (05:56)
[2019-03-30] MEDS: NORMAL SALINE 1000 ML 1,000 ML IV PRN ×2 (05:56→22:11)
[2019-03-30 06:39] LABS: HEMATOCRIT 33.2 % (36.0-47.0); HEMOGLOBIN 10.5 g/dL (12.0-15.5); MEAN CORPUSCULAR HEMOGLOBIN 30.8 pg (27.0-33.4); MEAN CORPUSCULAR HGB CONC 31.7 g/dL (32.0-36.0); MEAN CORPUSCULAR VOLUME 97 fl (80-97); PLATELET COUNT 243 10^3/uL (150-450); RED BLOOD COUNT 3.42 10^6/uL (3.72-5.28); RED CELL DISTRIBUTION WIDTH 13.4 % (11.5-14.0); WHITE BLOOD COUNT 7.5 10^3/uL (4.0-10.5)
[2019-03-30 07:18] LABS: ABSOLUTE LYMPHOCYTES# (MANUAL) 0.5 10^3/uL (0.5-4.7); ABSOLUTE MONOCYTES # (MANUAL) 0.6 10^3/uL (0.1-1.4); ABSOLUTE NEUTROPHILS# (MANUAL) 6.5 10^3/uL (1.7-8.2); BASOPHILS % (MANUAL) 0 % (0-2); EOSINOPHILS % (MANUAL) 0 % (0-6); LYMPHOCYTES % (MANUAL) 6 % (13-45); MONOCYTES % (MANUAL) 8 % (3-13); SEGMENTED NEUTROPHILS % (MAN) 86 % (42-78); TOTAL CELLS COUNTED 100
[2019-03-30 07:19] LABS: HYPOCHROMASIA 1+; PLATELET COMMENT ADEQUATE; POLYCHROMASIA SLIGHT; STOMATOCYTES 2+
[2019-03-30] MEDS: IPRATROPIUM/ALBUTEROL 0.5-2.5 MG/3 ML AMPUL NEB SCH ×3 (08:09→20:04)
--- NOTE | 2019-03-30 10:15 | PDOC PROGRESS REPORT ---
Subjective Progress Note for:: 03/30/19 Subjective:: Patient is feeling better Patient is denied any chest pain denied any shortness of the breath Reason For Visit: RESPIRATORY FAIURE, COPD Physical Exam Vital Signs: Temp Pulse Resp BP Pulse Ox 98.3 F 86 18 116/49 L 97 03/30/19 04:37 03/30/19 07:00 03/30/19 04:37 03/30/19 04:37 03/30/19 04:37 Pulse Oximeter Continuous Start: 03/29/19 00:29 Freq: RTQ4 Status: Active Protocol: Document 03/30/19 04:00 LDA (Rec: 03/30/19 04:22 [email or web address] [id number]) Pulse Oximetry Assessment Oxygen Saturation (92-100) 96 Oxygen Delivery Method Bi-pap Fraction of Inspired Oxygen (FIO2) 45 Equipment Usage Equipment in Use Continuous Pulse Oximeter 24 Hour Charge Charge Now Continuous SpO2 Machine # 2 Intake & Output 03/29/19 03/30/19 03/31/19 06:59 06:59 06:59 Intake Total 1050 3168 Output Total 390 4450 Balance 660 -1282 Weight 64.2 kg 64.2 kg General appearance: PRESENT: no acute distress, well-developed, well-nourished Head exam: PRESENT: atraumatic, normocephalic Eye exam: PRESENT: conjunctiva pink, EOMI, PERRLA. ABSENT: scleral icterus Ear exam: PRESENT: normal external ear exam Mouth exam: PRESENT: moist, tongue midline Neck exam: PRESENT: full ROM. ABSENT: carotid bruit, JVD, lymphadenopathy, thyromegaly Respiratory exam: PRESENT: clear to auscultation gurvinder Cardiovascular exam: PRESENT: RRR. ABSENT: diastolic murmur, rubs, systolic murmur Vascular exam: PRESENT: normal capillary refill GI/Abdominal exam: PRESENT: normal bowel sounds, soft. ABSENT: distended, guarding, mass, organolmegaly, rebound, tenderness Rectal exam: PRESENT: deferred Extremities exam: ABSENT: pedal edema Neurological exam: PRESENT: alert, awake, oriented to person, oriented to place, oriented to time, oriented to situation, CN II-XII grossly intact. ABSENT: motor sensory deficit Psychiatric exam: PRESENT: appropriate affect, normal mood. ABSENT: homicidal ideation, suicidal ideation Skin exam: PRESENT: dry, intact, warm. ABSENT: cyanosis, rash Results Laboratory Results: 03/30/19 06:21 03/29/19 05:21 03/30/19 03/30/19 06:21 06:21 WBC 7.5 RBC 3.42 L Hgb 10.5 L Hct 33.2 L MCV 97 MCH 30.8 MCHC 31.7 L RDW 13.4 Plt Count 243 Seg Neutrophils % Not Reportable Lymphocytes % Not Reportable Monocytes % Not Reportable Eosinophils % Not Reportable Basophils % Not Reportable Absolute Neutrophils Not Reportable Absolute Lymphocytes Not Reportable Absolute Monocytes Not Reportable Absolute Eosinophils Not Reportable Absolute Basophils Not Reportable Magnesium 2.1 03/28/19 03/28/19 16:25 16:25 Creatine Kinase 22 L CK-MB (CK-2) 0.52 Troponin I 0.031 Impressions: Chest X-Ray 03/28/19 16:22 IMPRESSION: No acute findings in the chest. Abdomen/Pelvis CT 03/28/19 18:19 IMPRESSION: Small right pleural effusion and basilar subsegmental atelectasis. There are areas of mucous plugging in the right lower lobe and scattered areas of tree-in-bud opacities -small airways disease. No acute findings in the abdomen or pelvis. Assessment & Plan - Diagnosis (1) COPD with acute exacerbation Is this a current diagnosis for this admission?: Yes Plan: Continues to nebulizer treatment and IV Solu-Medrol (2) End stage COPD Is this a current diagnosis for this admission?: Yes Plan: Continues to current management (3) Anemia Qualifiers: Anemia type: unspecified type Qualified Code(s): D64.9 - Anemia, unspecified Is this a current diagnosis for this admission?: Yes (4) Chronic respiratory failure with hypoxia and hypercapnia Is this a current diagnosis for this admission?: Yes Plan: Continue the BiPAP (5) GERD (gastroesophageal reflux disease) Qualifiers: Esophagitis presence: without esophagitis Qualified Code(s): K21.9 - Gastro-esophageal reflux disease without esophagitis Is this a current diagnosis for this admission?: Yes (6) HLD (hyperlipidemia) Qualifiers: Hyperlipidemia type: unspecified Qualified Code(s): E78.5 - Hyperlipidemia, unspecified Is this a current diagnosis for this admission?: Yes (7) HTN (hypertension) Qualifiers: Hypertension type: essential hypertension Qualified Code(s): I10 - Essential (primary) hypertension Is this a current diagnosis for this admission?: Yes - Time Time Spent with patient: 15-24 minutes Medications reviewed and adjusted accordingly: Yes Anticipated discharge: Home Within: Other - Plan Summary Plan Summary: Continues to current medications
[2019-03-30] MEDS: CEFEPIME HCL 2 GM in DEXTROSE 5%-WATER 50 ML IV SCH ×2 (10:48→22:09)
[2019-03-30] MEDS: DOCUSATE SODIUM 100 MG CAPSULE PO SCH ×2 (10:48→17:41)
[2019-03-30] MEDS: ENOXAPARIN SODIUM INJ 30 MG/0.3 ML DISP.SYRIN SUBCUT SCH (10:48)
[2019-03-30] MEDS: TIOTROPIUM BROMIDE DPI 5 CAP/KIT (18 MCG/CAP) IH SCH (10:49)
[2019-03-30] MEDS: FLUTICASONE/VILANTEROL 200-25 MCG/DOSE IH SCH (10:49)
[2019-03-30] MEDS: ROFLUMILAST 500 MCG TABLET PO SCH (10:49)
[2019-03-30] MEDS: THEOPHYLLINE ANHYDROUS 100 MG TAB.SR.12H PO SCH (10:51)
[2019-03-30] MEDS: METHYLPREDNISOLONE INJ 40 MG/1 ML SDV IV SCH (17:41)
[2019-03-30] MEDS ORDERED: METHYLPREDNISOLONE INJ 125 MG/2 ML SDV IV SCH (18:00)
--- NOTE | 2019-03-30 18:29 | PROGRESS NOTE E ---
Progress Note NAME: JERMAIN LIN : 1950 AGE: 68Y DATE: 03/30/2019 ROOM: 308 SUBJECTIVE: The patient is a 68-year-old female who came in with severe COPD exacerbation and pneumonia, and altered mental status. The patient has been doing well over the last 24 hours. No coughing, no fever spikes in the last 24 hours. The patient was placed on BiPAP 16/8 and that is working well. No vomiting, no nausea, no diarrhea. Able to tolerate nasal cannula during meals and short period of time during the daytime when awake. OBJECTIVE: GENERAL: The patient is awake, alert, oriented x3. VITAL SIGNS: Temperature 98.3, T-max 98.8. Heart rate 94, respirations 30, blood pressure 116/49. Saturation 92% on 40% FiO2. HEENT: No conjunctival pallor. Ears, nose and throat: No ear drainage, no nasal discharge. CHEST/LUNGS: No wheezing, no rhonchi, no coarse crackles. CARDIOVASCULAR: S1 and S2 distinct. Normal rate. ABDOMEN: Flabby. Positive bowel sounds. Soft, nondistended, nontender. EXTREMITIES: No joint swelling or cellulitis. LABORATORY: CBC done today showed white count of 7.5, hemoglobin 10.5, hematocrit 33.2, platelet count 243. No bands noted. No chemistry done today. ASSESSMENT: 1. ACUTE RESPIRATORY FAILURE REQUIRING BIPAP THERAPY. Currently improving and able to tolerate BiPAP and nasal cannula. 2. SEVERE CHRONIC OBSTRUCTIVE PULMONARY DISEASE IN ACUTE EXACERBATION. Not in bronchospasm. Exacerbation appears to have improved. 3. PNEUMONIA. PLAN: Continue Daliresp, Spiriva, and BREO 200. The patient may get nebulizer treatment twice a day, and then as needed in between. Continue on IV antibiotics. The patient may be able to go home in the next one to two days if she remains stable and doing better, and able to tolerate nasal cannula when awake. Continue BiPAP at home, especially if she gets very short of breath and during sleep. Will decrease Solu-Medrol dose to 40 mg q.8 hours. DICTATING PHYSICIAN: MICHELL KOROMA MD,SANDRA,MPH [id number] PHY#: [id number] ID: [id number] JOB#: [id number] ACCT: [id number] cc: > MTDD
[2019-03-31] MEDS: METHYLPREDNISOLONE INJ 40 MG/1 ML SDV IV SCH ×3 (02:00→17:12)
[2019-03-31] MEDS ORDERED: ALPRAZOLAM 0.25 MG TABLET PO ONE (04:00)
[2019-03-31] MEDS: PANTOPRAZOLE SODIUM 20 MG TABLET.DR PO SCH (05:03)
[2019-03-31 05:16] LABS: ABSOLUTE LYMPHOCYTES (AUTO) 0.8 10^3/uL (0.5-4.7); ABSOLUTE NEUT (AUTO) 7.6 10^3/uL (1.7-8.2); BASOPHILS % (AUTO) 0.3 % (0-2); HEMATOCRIT 34.4 % (36.0-47.0); LYMPHOCYTES % (AUTO) 8.3 % (13-45); MEAN CORPUSCULAR HEMOGLOBIN 31.1 pg (27.0-33.4); MEAN CORPUSCULAR VOLUME 97 fl (80-97); MONOCYTES % (AUTO) 10.9 % (3-13); PLATELET COUNT 240 10^3/uL (150-450); RED BLOOD COUNT 3.54 10^6/uL (3.72-5.28); RED CELL DISTRIBUTION WIDTH 13.5 % (11.5-14.0); SEGMENTED NEUTROPHILS % (AUTO) 80.5 % (42-78); TOTAL CELLS COUNTED % (AUTO) 100 %; WHITE BLOOD COUNT 9.4 10^3/uL (4.0-10.5)
[2019-03-31 05:20] LABS: ARTERIAL BLOOD BASE EXCESS 15.6 mmol/L; ARTERIAL BLOOD FIO2 50%; ARTERIAL BLOOD H2CO3 2.35 mmol/L (1.05-1.35); ARTERIAL BLOOD HCO3 45.1 mmol/L (20-24); ARTERIAL BLOOD PH 7.38 (7.35-7.45); ARTERIAL BLOOD PO2 74.4 mmHg (80-100); ARTERIAL BLOOD TOTAL CO2 47.5 mmol/L (21-25)
[2019-03-31 05:22] LABS: ARTERIAL BLOOD PCO2 78.2 mmHg (35-45)
--- NOTE | 2019-03-31 06:59 | EKG REPORT ---
SEVERITY:- OTHERWISE NORMAL ECG - SINUS TACHYCARDIA : Confirmed by: Jordon Harris 31-Mar-2019 06:58:49
[2019-03-31] MEDS: IPRATROPIUM/ALBUTEROL 0.5-2.5 MG/3 ML AMPUL NEB SCH ×3 (08:27→20:03)
--- NOTE | 2019-03-31 09:16 | RADIOLOGY REPORT (SQ) ---
EXAM DESCRIPTION: CHEST SINGLE VIEW COMPLETED DATE/TIME: 03/31/2019 9:05 am REASON FOR STUDY: chest pain COMPARISON: CT chest 02/04/2019 AP chest 03/24/2019, 03/28/2019 EXAM PARAMETERS: NUMBER OF VIEWS: One view. TECHNIQUE: Single frontal radiographic view of the chest acquired. RADIATION DOSE: NA LIMITATIONS: None. FINDINGS: LUNGS AND PLEURA: Upper lobes are hyperlucent from obstructive disease. No focal infiltrates. No pleural effusion or pneumothorax. MEDIASTINUM AND HILAR STRUCTURES: No masses. Contour normal. HEART AND VASCULAR STRUCTURES: Borderline cardiomegaly BONES: Old right lateral rib fractures HARDWARE: None in the chest. OTHER: No other significant finding. IMPRESSION: Obstructive lung disease. No acute findings TECHNICAL DOCUMENTATION: JOB ID: [id number] [employer]- All Rights Reserved Reading location - IP/workstation name: [email or web address]
--- NOTE | 2019-03-31 09:49 | EKG REPORT ---
SEVERITY:- ABNORMAL ECG - SINUS TACHYCARDIA NONSPECIFIC T ABNORMALITIES, ANT-LAT LEADS : Confirmed on behalf of: Jordon Harris 31-Mar-2019 09:48:33
[2019-03-31] MEDS ORDERED: (PENDING PHARMACY ID) (Tiotropium Bromide [Spiriva Respimat] 1 PUFF) IH SCH (10:00)
[2019-03-31] MEDS: DOCUSATE SODIUM 100 MG CAPSULE PO SCH ×2 (10:13→17:09)
[2019-03-31] MEDS: ROFLUMILAST 500 MCG TABLET PO SCH (10:21)
[2019-03-31] MEDS: ACETAZOLAMIDE 250 MG TABLET PO SCH ×2 (10:21→23:03)
[2019-03-31] MEDS: FLUTICASONE/VILANTEROL 200-25 MCG/DOSE IH SCH (10:21)
[2019-03-31] MEDS: ASPIRIN 81 MG TABLET, ENT COATED PO SCH (10:21)
[2019-03-31] MEDS: ENOXAPARIN SODIUM INJ 30 MG/0.3 ML DISP.SYRIN SUBCUT SCH (10:22)
[2019-03-31] MEDS: TIOTROPIUM BROMIDE DPI 5 CAP/KIT (18 MCG/CAP) IH SCH (10:22)
[2019-03-31] MEDS: ISOSORBIDE MONONITRATE 30 MG TAB.ER.24H PO SCH (10:22)
[2019-03-31] MEDS: GUAIFENESIN 600 MG TABLET.SA PO SCH ×2 (10:22→23:03)
[2019-03-31] MEDS: BUPROPION HCL 75 MG TABLET PO SCH ×2 (10:23→23:03)
[2019-03-31] MEDS: THEOPHYLLINE ANHYDROUS 100 MG TAB.SR.12H PO SCH (10:23)
[2019-03-31] MEDS: CEFEPIME HCL 2 GM in DEXTROSE 5%-WATER 50 ML IV SCH ×2 (10:40→23:04)
[2019-03-31] MEDS: GABAPENTIN 300 MG CAPSULE PO SCH ×2 (14:33→23:04)
[2019-03-31] MEDS: NYSTATIN 500000 UNIT/5 ML UDCUP PO SCH ×4 (14:33→23:05)
[2019-03-31] MEDS: NORMAL SALINE 1000 ML 1,000 ML IV PRN (14:37)
--- NOTE | 2019-03-31 18:35 | PDOC PROGRESS REPORT ---
Subjective Progress Note for:: 03/31/19 Subjective:: Patient remain on BiPAP support. She admitted to coughing with sputum production. No fever or chills. no chest pain, nausea, vomiting r abdominal pain. Reason For Visit: RESPIRATORY FAIURE, COPD Physical Exam Vital Signs: Temp Pulse Resp BP Pulse Ox 98.0 F 96 28 H 123/77 92 03/31/19 04:24 03/31/19 08:28 03/31/19 08:28 03/31/19 04:24 03/31/19 08:28 Pulse Oximeter Continuous Start: 03/29/19 00:29 Freq: RTQ4 Status: Active Protocol: Document 03/31/19 08:28 BOR (Rec: 03/31/19 08:33 BOR [id number]) Pulse Oximetry Assessment Oxygen Saturation (92-100) 92 Oxygen Delivery Method Bi-pap Fraction of Inspired Oxygen (FIO2) 40 Equipment Usage Equipment in Use Continuous SpO2 Machine # 2 Intake & Output 03/30/19 03/31/19 04/01/19 06:59 06:59 06:59 Intake Total 3168 1849 Output Total 4450 2700 Balance -1282 -851 Weight 64.2 kg 63.1 kg General appearance: PRESENT: mild distress - on BiPAP support Head exam: PRESENT: atraumatic, normocephalic Eye exam: PRESENT: conjunctiva pink. ABSENT: scleral icterus Ear exam: PRESENT: normal external ear exam Mouth exam: PRESENT: moist Respiratory exam: PRESENT: decreased breath sounds, prolonged expiratory phas, rhonchi, wheezes Cardiovascular exam: PRESENT: RRR. ABSENT: diastolic murmur, rubs, systolic murmur Vascular exam: ABSENT: pallor GI/Abdominal exam: PRESENT: normal bowel sounds, soft. ABSENT: distended, guarding, mass, organolmegaly, rebound, tenderness Extremities exam: ABSENT: pedal edema Neurological exam: PRESENT: alert, awake, oriented to person, oriented to place, oriented to time, oriented to situation, CN II-XII grossly intact. ABSENT: motor sensory deficit Psychiatric exam: PRESENT: anxious Skin exam: PRESENT: dry, warm Results Laboratory Results: 03/31/19 04:49 03/29/19 05:21 03/31/19 03/31/19 03/31/19 03:57 04:49 04:49 WBC 9.4 RBC 3.54 L Hgb 11.0 L Hct 34.4 L MCV 97 MCH 31.1 MCHC 32.0 RDW 13.5 Plt Count 240 Seg Neutrophils % 80.5 H Lymphocytes % 8.3 L Monocytes % 10.9 Eosinophils % 0.0 Basophils % 0.3 Absolute Neutrophils 7.6 Absolute Lymphocytes 0.8 Absolute Monocytes 1.0 Absolute Eosinophils 0.0 Absolute Basophils 0.0 Carbonic Acid 2.35 H HCO3/H2CO3 Ratio 19:1 ABG pH 7.38 ABG pCO2 78.2 H* ABG pO2 74.4 L ABG HCO3 45.1 H ABG O2 Saturation 94.0 ABG Base Excess 15.6 FiO2 50% Magnesium 2.0 03/28/19 03/28/19 16:25 16:25 Creatine Kinase 22 L CK-MB (CK-2) 0.52 Troponin I 0.031 Impressions: Chest X-Ray 03/28/19 16:22 IMPRESSION: No acute findings in the chest. Abdomen/Pelvis CT 03/28/19 18:19 IMPRESSION: Small right pleural effusion and basilar subsegmental atelectasis. There are areas of mucous plugging in the right lower lobe and scattered areas of tree-in-bud opacities -small airways disease. No acute findings in the abdomen or pelvis. Assessment & Plan - Diagnosis (1) COPD with acute exacerbation Is this a current diagnosis for this admission?: Yes Plan: See attending physician orders for care plan details. (2) Hypoxemia requiring supplemental oxygen Is this a current diagnosis for this admission?: Yes Plan: See attending physician orders for care plan details. (3) Chronic respiratory failure with hypoxia and hypercapnia Is this a current diagnosis for this admission?: Yes Plan: See attending physician orders for care plan details. (4) HTN (hypertension) Qualifiers: Hypertension type: essential hypertension Qualified Code(s): I10 - Essential (primary) hypertension Is this a current diagnosis for this admission?: Yes Plan: See attending physician orders for care plan details. (5) HLD (hyperlipidemia) Qualifiers: Hyperlipidemia type: unspecified Qualified Code(s): E78.5 - Hyperlipidemia, unspecified Is this a current diagnosis for this admission?: Yes Plan: See attending physician orders for care plan details. (6) Degenerative disc disease Qualifiers: Spinal region: lumbosacral Qualified Code(s): M51.37 - Other intervertebral disc degeneration, lumbosacral region Is this a current diagnosis for this admission?: Yes Plan: See attending physician orders for care plan details. (7) Chronic, continuous use of opioids Is this a current diagnosis for this admission?: Yes Plan: See attending physician orders for care plan details. (8) GERD (gastroesophageal reflux disease) Qualifiers: Esophagitis presence: without esophagitis Qualified Code(s): K21.9 - Gastro-esophageal reflux disease without esophagitis Is this a current diagnosis for this admission?: Yes Plan: See attending physician orders for care plan details. - Time Time Spent with patient: 25-34 minutes Medications reviewed and adjusted accordingly: Yes Anticipated discharge: Home with Homehealth Within: Other - Inpatient Certification Based on my medical assessment, after consideration of the patient's comorbidities, presenting symptoms, or acuity I expect that the services needed warrant INPATIENT care.: Yes I certify that my determination is in accordance with my understanding of Medicare's requirements for reasonable and necessary INPATIENT services [42 CFR 412.3e].: Yes Medical Necessity: Significant Comorbidiites Make Outpatient Treatment Too Risky, Need Close Monitoring Due to Risk of Patient Decompensation, Need For IV Fluids, Need For Continuous Telemetry Monitoring, Need for Nebulizer Therapy and Monitoring of Response, Need for Pain Control, Need for IV Antibiotics, Risk of Complication if Not Cared For in Hospital, Risk of Diagnosis Which Will Require Inpatient Eval/Care/Monitoring Post Hospital Care: D/C Unit Support Representative Documentation - Plan Summary Plan Summary: See attending physician orders for care plan details.
[2019-03-31] MEDS: MONTELUKAST SODIUM 10 MG TABLET PO SCH (23:03)
[2019-04-01] MEDS: METHYLPREDNISOLONE INJ 40 MG/1 ML SDV IV SCH ×3 (02:47→17:13)
[2019-04-01] MEDS: NYSTATIN 500000 UNIT/5 ML UDCUP PO SCH ×3 (05:15→17:13)
[2019-04-01] MEDS: GABAPENTIN 300 MG CAPSULE PO SCH ×3 (05:16→22:22)
[2019-04-01] MEDS: PANTOPRAZOLE SODIUM 20 MG TABLET.DR PO SCH (05:16)
[2019-04-01 06:31] LABS: ARTERIAL BLOOD BASE EXCESS 8.3 mmol/L; ARTERIAL BLOOD H2CO3 2.45 mmol/L (1.05-1.35); ARTERIAL BLOOD HCO3 37.4 mmol/L (20-24); ARTERIAL BLOOD O2 SATURATION 95.8 % (94-98); ARTERIAL BLOOD PH 7.28 (7.35-7.45); ARTERIAL BLOOD PO2 93.5 mmHg (80-100); ARTERIAL BLOOD TOTAL CO2 39.9 mmol/L (21-25)
[2019-04-01 06:32] LABS: ARTERIAL BLOOD PCO2 81.3 mmHg (35-45)
[2019-04-01 06:51] LABS: ABSOLUTE LYMPHOCYTES (AUTO) 0.3 10^3/uL (0.5-4.7); ABSOLUTE MONOCYTES (AUTO) 0.4 10^3/uL (0.1-1.4); ABSOLUTE NEUT (AUTO) 5.1 10^3/uL (1.7-8.2); BASOPHILS % (AUTO) 0.2 % (0-2); HEMATOCRIT 34.5 % (36.0-47.0); LYMPHOCYTES % (AUTO) 5.5 % (13-45); MEAN CORPUSCULAR HEMOGLOBIN 30.9 pg (27.0-33.4); MEAN CORPUSCULAR HGB CONC 31.9 g/dL (32.0-36.0); MEAN CORPUSCULAR VOLUME 97 fl (80-97); MONOCYTES % (AUTO) 7.4 % (3-13); PLATELET COUNT 231 10^3/uL (150-450); RED BLOOD COUNT 3.56 10^6/uL (3.72-5.28); RED CELL DISTRIBUTION WIDTH 13.7 % (11.5-14.0); SEGMENTED NEUTROPHILS % (AUTO) 86.9 % (42-78); TOTAL CELLS COUNTED % (AUTO) 100 %; WHITE BLOOD COUNT 5.9 10^3/uL (4.0-10.5)
[2019-04-01 07:23] LABS: ALANINE AMINOTRANSFERASE 196 U/L (9-52); ALBUMIN 3.2 g/dL (3.5-5.0); ALKALINE PHOSPHATASE 64 U/L (38-126); ASPARTATE AMINO TRANSFERASE 47 U/L (14-36); BILIRUBIN,DIRECT 0.3 mg/dL (0.0-0.4); BILIRUBIN,TOTAL 0.3 mg/dL (0.2-1.3); BLOOD UREA NITROGEN 16 mg/dL (7-20); CALCIUM 7.3 mg/dL (8.4-10.2); CHLORIDE 100 mmol/L (98-107); GLUCOSE 122 mg/dL (75-110); POTASSIUM 4.1 mmol/L (3.6-5.0); TOTAL PROTEIN 5.9 g/dL (6.3-8.2)
[2019-04-01] MEDS: IPRATROPIUM/ALBUTEROL 0.5-2.5 MG/3 ML AMPUL NEB SCH ×3 (07:28→19:44)
[2019-04-01 08:20] LABS: SODIUM 143.7 mmol/L (137-145)
[2019-04-01 08:24] LABS: ANION GAP 6 (5-19); CARBON DIOXIDE 38 mmol/L (22-30)
[2019-04-01] MEDS: DOCUSATE SODIUM 100 MG CAPSULE PO SCH ×2 (09:46→17:10)
[2019-04-01] MEDS: ISOSORBIDE MONONITRATE 30 MG TAB.ER.24H PO SCH (09:54)
[2019-04-01] MEDS: ROFLUMILAST 500 MCG TABLET PO SCH (09:54)
[2019-04-01] MEDS: FLUTICASONE/VILANTEROL 200-25 MCG/DOSE IH SCH (09:54)
[2019-04-01] MEDS: ACETAZOLAMIDE 250 MG TABLET PO SCH ×2 (09:54→22:22)
[2019-04-01] MEDS: ASPIRIN 81 MG TABLET, ENT COATED PO SCH (09:54)
[2019-04-01] MEDS: GUAIFENESIN 600 MG TABLET.SA PO SCH ×2 (09:55→22:22)
[2019-04-01] MEDS: CEFEPIME HCL 2 GM in DEXTROSE 5%-WATER 50 ML IV SCH ×2 (09:55→22:22)
[2019-04-01] MEDS: ENOXAPARIN SODIUM INJ 30 MG/0.3 ML DISP.SYRIN SUBCUT SCH (09:55)
[2019-04-01] MEDS: BUPROPION HCL 75 MG TABLET PO SCH ×2 (09:56→22:22)
[2019-04-01] MEDS: TIOTROPIUM BROMIDE DPI 5 CAP/KIT (18 MCG/CAP) IH SCH (09:56)
[2019-04-01] MEDS: THEOPHYLLINE ANHYDROUS 100 MG TAB.SR.12H PO SCH (09:56)
[2019-04-01] MEDS: NORMAL SALINE 1000 ML 1,000 ML IV PRN (10:00)
--- NOTE | 2019-04-01 20:28 | PDOC PROGRESS REPORT ---
Subjective Progress Note for:: 04/01/19 Subjective:: Patient remain on BiPAP support. She remain compliant with usage. Still there is continue exertion related dyspnea off BiPAP support. No fever or chills. no chest pain, nausea, vomiting r abdominal pain. Reason For Visit: RESPIRATORY FAIURE, COPD Physical Exam Vital Signs: Temp Pulse Resp BP Pulse Ox 98.1 F 98 30 H 114/52 L 92 04/01/19 03:24 04/01/19 07:30 04/01/19 07:30 04/01/19 03:24 04/01/19 07:30 Pulse Oximeter Continuous Start: 03/29/19 00:29 Freq: RTQ4 Status: Active Protocol: Document 04/01/19 07:30 BOR (Rec: 04/01/19 07:40 BOR [id number]) Pulse Oximetry Assessment Oxygen Saturation (92-100) 92 Oxygen Delivery Method Bi-pap Fraction of Inspired Oxygen (FIO2) 40 Equipment Usage Equipment in Use Continuous SpO2 Machine # 2 Intake & Output 03/31/19 04/01/19 04/02/19 06:59 06:59 06:59 Intake Total 1849 1285 Output Total 2700 3500 Balance -851 -2215 Weight 63.1 kg 62.4 kg Physical Exam: General appearance: PRESENT: mild distress - on BiPAP support Head exam: PRESENT: atraumatic, normocephalic Eye exam: PRESENT: conjunctiva pink. ABSENT: scleral icterus Ear exam: PRESENT: normal external ear exam Mouth exam: PRESENT: moist Respiratory exam: PRESENT: decreased breath sounds, prolonged expiratory phase, rhonchi, wheezes Cardiovascular exam: PRESENT: RRR. ABSENT: diastolic murmur, rubs, systolic murmur Vascular exam: ABSENT: pallor GI/Abdominal exam: PRESENT: normal bowel sounds, soft. ABSENT: distended, guarding, mass, organomegaly, rebound, tenderness Extremities exam: ABSENT: pedal edema Neurological exam: PRESENT: alert, awake, oriented to person, oriented to place, oriented to time, oriented to situation, CN II-XII grossly intact. ABSENT: motor sensory deficit Psychiatric exam: PRESENT: anxious Skin exam: PRESENT: dry, warm Results Laboratory Results: 04/01/19 05:10 04/01/19 04/01/19 05:10 05:30 WBC 5.9 RBC 3.56 L Hgb 11.0 L Hct 34.5 L MCV 97 MCH 30.9 MCHC 31.9 L RDW 13.7 Plt Count 231 Seg Neutrophils % 86.9 H Lymphocytes % 5.5 L Monocytes % 7.4 Eosinophils % 0.0 Basophils % 0.2 Absolute Neutrophils 5.1 Absolute Lymphocytes 0.3 L Absolute Monocytes 0.4 Absolute Eosinophils 0.0 Absolute Basophils 0.0 Carbonic Acid 2.45 H HCO3/H2CO3 Ratio 15:1 ABG pH 7.28 L ABG pCO2 81.3 H* ABG pO2 93.5 ABG HCO3 37.4 H ABG O2 Saturation 95.8 ABG Base Excess 8.3 FiO2 4.00 03/29/19 06:30 Catheterized Urine Urine Culture - Final NO GROWTH 2 DAYS 03/28/19 03/28/19 16:25 16:25 Creatine Kinase 22 L CK-MB (CK-2) 0.52 Troponin I 0.031 Impressions: Abdomen/Pelvis CT 03/28/19 18:19 IMPRESSION: Small right pleural effusion and basilar subsegmental atelectasis. There are areas of mucous plugging in the right lower lobe and scattered areas of tree-in-bud opacities -small airways disease. No acute findings in the abdomen or pelvis. Chest X-Ray 03/31/19 00:00 IMPRESSION: Obstructive lung disease. No acute findings Assessment & Plan - Diagnosis (1) COPD with acute exacerbation Is this a current diagnosis for this admission?: Yes (2) Hypoxemia requiring supplemental oxygen Is this a current diagnosis for this admission?: Yes (3) Chronic respiratory failure with hypoxia and hypercapnia Is this a current diagnosis for this admission?: Yes (4) HTN (hypertension) Qualifiers: Hypertension type: essential hypertension Qualified Code(s): I10 - Essential (primary) hypertension Is this a current diagnosis for this admission?: Yes (5) HLD (hyperlipidemia) Qualifiers: Hyperlipidemia type: unspecified Qualified Code(s): E78.5 - Hyperlipidemia, unspecified Is this a current diagnosis for this admission?: Yes (6) Degenerative disc disease Qualifiers: Spinal region: lumbosacral Qualified Code(s): M51.37 - Other intervertebral disc degeneration, lumbosacral region Is this a current diagnosis for this admission?: Yes (7) Chronic, continuous use of opioids Is this a current diagnosis for this admission?: Yes (8) GERD (gastroesophageal reflux disease) Qualifiers: Esophagitis presence: without esophagitis Qualified Code(s): K21.9 - Gastro-esophageal reflux disease without esophagitis Is this a current diagnosis for this admission?: Yes - Time Time Spent with patient: 25-34 minutes Medications reviewed and adjusted accordingly: Yes Anticipated discharge: Home with Homehealth Within: Other - Inpatient Certification Based on my medical assessment, after consideration of the patient's comorbidities, presenting symptoms, or acuity I expect that the services needed warrant INPATIENT care.: Yes I certify that my determination is in accordance with my understanding of Medicare's requirements for reasonable and necessary INPATIENT services [42 CFR 412.3e].: Yes Medical Necessity: Significant Comorbidiites Make Outpatient Treatment Too Risky, Need Close Monitoring Due to Risk of Patient Decompensation, Need For IV Fluids, Need For Continuous Telemetry Monitoring, Need for Nebulizer Therapy and Monitoring of Response, Need for IV Antibiotics, Risk of Complication if Not Cared For in Hospital, Risk of Diagnosis Which Will Require Inpatient Eval/Care/Monitoring Post Hospital Care: D/C [employer] Documentation - Plan Summary Plan Summary: Continue current medication management. Repeat ABG in AM. Follow up on blood culture findings.
[2019-04-01] MEDS: MONTELUKAST SODIUM 10 MG TABLET PO SCH (22:22)
[2019-04-02] MEDS: NYSTATIN 500000 UNIT/5 ML UDCUP PO SCH ×4 (01:04→17:31)
[2019-04-02] MEDS: METHYLPREDNISOLONE INJ 40 MG/1 ML SDV IV SCH ×3 (01:04→17:31)
[2019-04-02] MEDS: NORMAL SALINE 1000 ML 1,000 ML IV PRN ×2 (04:26→22:12)
[2019-04-02] MEDS: PANTOPRAZOLE SODIUM 20 MG TABLET.DR PO SCH (05:52)
[2019-04-02] MEDS: GABAPENTIN 300 MG CAPSULE PO SCH ×3 (05:52→22:12)
[2019-04-02] MEDS: IPRATROPIUM/ALBUTEROL 0.5-2.5 MG/3 ML AMPUL NEB SCH ×3 (07:43→19:38)
--- NOTE | 2019-04-02 08:20 | PDOC PROGRESS REPORT ---
Subjective Progress Note for:: 04/02/19 Subjective:: Patient remain compliant with BiPAP support usage. No chest pain or palpitation. No fever or chills. No nausea, vomiting or abdominal pain. Reason For Visit: RESPIRATORY FAIURE, COPD Physical Exam Vital Signs: Temp Pulse Resp BP Pulse Ox 97.6 F 82 18 139/72 H 94 04/02/19 03:32 04/02/19 07:43 04/02/19 07:43 04/02/19 03:32 04/02/19 07:43 Pulse Oximeter Continuous Start: 03/29/19 00:29 Freq: RTQ4 Status: Active Protocol: Document 04/02/19 07:43 [facility] (Rec: 04/02/19 07:49 [facility] [email or web address]) Pulse Oximetry Assessment Oxygen Saturation (92-100) 94 Oxygen Delivery Method Bi-pap Fraction of Inspired Oxygen (FIO2) 40 Equipment Usage Equipment in Use Continuous SpO2 Machine # 3 Intake & Output 04/01/19 04/02/19 04/03/19 06:59 06:59 06:59 Intake Total 1285 3172 Output Total 3500 2930 Balance -2215 242 Weight 62.4 kg 62.5 kg Physical Exam: General appearance: PRESENT: mild distress - on BiPAP support Head exam: PRESENT: atraumatic, normocephalic Eye exam: PRESENT: conjunctiva pink. ABSENT: pallor, scleral icterus Ear exam: PRESENT: normal external ear exam Mouth exam: PRESENT: moist Respiratory exam: PRESENT: decreased breath sounds, prolonged expiratory phase, rhonchi, wheezes Cardiovascular exam: PRESENT: RRR. ABSENT: diastolic murmur, rubs, systolic murmur GI/Abdominal exam: PRESENT: normal bowel sounds, soft. ABSENT: distended, guarding, mass, organomegaly, rebound, tenderness Extremities exam: ABSENT: pedal edema Neurological exam: PRESENT: alert, awake, oriented to person, oriented to place, oriented to time, oriented to situation, CN II-XII grossly intact. ABSENT: motor sensory deficit Psychiatric exam: PRESENT: anxious Skin exam: PRESENT: dry, warm Results Laboratory Results: 04/01/19 05:10 04/01/19 05:10 04/01/19 05:10 Sodium 143.7 Potassium 4.1 Chloride 100 Carbon Dioxide 38 H Anion Gap 6 BUN 16 Creatinine 0.50 L Est GFR ( Amer) > 60 Est GFR (Non-Af Amer) > 60 Glucose 122 H Calcium 7.3 L Total Bilirubin 0.3 AST 47 H ALT 196 H Alkaline Phosphatase 64 Total Protein 5.9 L Albumin 3.2 L 03/28/19 03/28/19 16:25 16:25 Creatine Kinase 22 L CK-MB (CK-2) 0.52 Troponin I 0.031 Impressions: Abdomen/Pelvis CT 03/28/19 18:19 IMPRESSION: Small right pleural effusion and basilar subsegmental atelectasis. There are areas of mucous plugging in the right lower lobe and scattered areas of tree-in-bud opacities -small airways disease. No acute findings in the abdomen or pelvis. Chest X-Ray 03/31/19 00:00 IMPRESSION: Obstructive lung disease. No acute findings Assessment & Plan - Diagnosis (1) COPD with acute exacerbation Is this a current diagnosis for this admission?: Yes (2) Hypoxemia requiring supplemental oxygen Is this a current diagnosis for this admission?: Yes (3) Chronic respiratory failure with hypoxia and hypercapnia Is this a current diagnosis for this admission?: Yes (4) HTN (hypertension) Qualifiers: Hypertension type: essential hypertension Qualified Code(s): I10 - Essential (primary) hypertension Is this a current diagnosis for this admission?: Yes (5) HLD (hyperlipidemia) Qualifiers: Hyperlipidemia type: unspecified Qualified Code(s): E78.5 - Hyperlipidemia, unspecified Is this a current diagnosis for this admission?: Yes (6) Degenerative disc disease Qualifiers: Spinal region: lumbosacral Qualified Code(s): M51.37 - Other intervertebral disc degeneration, lumbosacral region Is this a current diagnosis for this admission?: Yes (7) Chronic, continuous use of opioids Is this a current diagnosis for this admission?: Yes (8) GERD (gastroesophageal reflux disease) Qualifiers: Esophagitis presence: without esophagitis Qualified Code(s): K21.9 - Gastro-esophageal reflux disease without esophagitis Is this a current diagnosis for this admission?: Yes - Time Time Spent with patient: 25-34 minutes Medications reviewed and adjusted accordingly: Yes Anticipated discharge: Home with Homehealth Within: Other - Inpatient Certification Based on my medical assessment, after consideration of the patient's comorbidities, presenting symptoms, or acuity I expect that the services needed warrant INPATIENT care.: Yes I certify that my determination is in accordance with my understanding of Medicare's requirements for reasonable and necessary INPATIENT services [42 CFR 412.3e].: Yes Medical Necessity: Significant Comorbidiites Make Outpatient Treatment Too Risky, Need Close Monitoring Due to Risk of Patient Decompensation, Need For IV Fluids, Need For Continuous Telemetry Monitoring, Need for Nebulizer Therapy and Monitoring of Response, Need for IV Antibiotics, Risk of Complication if Not Cared For in Hospital, Risk of Diagnosis Which Will Require Inpatient Eval/Care/Monitoring Post Hospital Care: D/C Investigative Assistant Documentation - Plan Summary Plan Summary: Continue current medication management. Obtain ABG on BiPAP suport.
[2019-04-02] MEDS: ISOSORBIDE MONONITRATE 30 MG TAB.ER.24H PO SCH (11:06)
[2019-04-02] MEDS: ACETAZOLAMIDE 250 MG TABLET PO SCH ×2 (11:06→22:12)
[2019-04-02] MEDS: GUAIFENESIN 600 MG TABLET.SA PO SCH ×2 (11:06→22:12)
[2019-04-02] MEDS: DOCUSATE SODIUM 100 MG CAPSULE PO SCH ×2 (11:07→17:32)
[2019-04-02] MEDS: ASPIRIN 81 MG TABLET, ENT COATED PO SCH (11:07)
[2019-04-02] MEDS: ENOXAPARIN SODIUM INJ 30 MG/0.3 ML DISP.SYRIN SUBCUT SCH (11:08)
[2019-04-02] MEDS: FLUTICASONE/VILANTEROL 200-25 MCG/DOSE IH SCH (11:08)
[2019-04-02] MEDS: ROFLUMILAST 500 MCG TABLET PO SCH (11:08)
[2019-04-02] MEDS: TIOTROPIUM BROMIDE DPI 5 CAP/KIT (18 MCG/CAP) IH SCH (11:10)
[2019-04-02] MEDS: BUPROPION HCL 75 MG TABLET PO SCH ×2 (11:10→22:12)
[2019-04-02] MEDS: THEOPHYLLINE ANHYDROUS 100 MG TAB.SR.12H PO SCH (11:11)
[2019-04-02] MEDS: CEFEPIME HCL 2 GM in DEXTROSE 5%-WATER 50 ML IV SCH ×2 (11:13→22:13)
[2019-04-02] MEDS: MONTELUKAST SODIUM 10 MG TABLET PO SCH (22:12)
[2019-04-03] MEDS: METHYLPREDNISOLONE INJ 40 MG/1 ML SDV IV SCH ×3 (01:15→18:25)
[2019-04-03] MEDS: NYSTATIN 500000 UNIT/5 ML UDCUP PO SCH ×4 (01:15→18:26)
[2019-04-03] MEDS: GABAPENTIN 300 MG CAPSULE PO SCH ×3 (05:52→21:05)
[2019-04-03] MEDS: PANTOPRAZOLE SODIUM 20 MG TABLET.DR PO SCH (05:52)
[2019-04-03 06:00] LABS: ABSOLUTE LYMPHOCYTES (AUTO) 0.4 10^3/uL (0.5-4.7); ABSOLUTE MONOCYTES (AUTO) 0.2 10^3/uL (0.1-1.4); BASOPHILS % (AUTO) 0.1 % (0-2); HEMATOCRIT 36.6 % (36.0-47.0); HEMOGLOBIN 11.5 g/dL (12.0-15.5); LYMPHOCYTES % (AUTO) 6.9 % (13-45); MEAN CORPUSCULAR HEMOGLOBIN 30.7 pg (27.0-33.4); MEAN CORPUSCULAR HGB CONC 31.6 g/dL (32.0-36.0); MEAN CORPUSCULAR VOLUME 97 fl (80-97); MONOCYTES % (AUTO) 3.5 % (3-13); PLATELET COUNT 263 10^3/uL (150-450); RED BLOOD COUNT 3.75 10^6/uL (3.72-5.28); RED CELL DISTRIBUTION WIDTH 13.7 % (11.5-14.0); SEGMENTED NEUTROPHILS % (AUTO) 89.5 % (42-78); TOTAL CELLS COUNTED % (AUTO) 100 %; WHITE BLOOD COUNT 5.6 10^3/uL (4.0-10.5)
[2019-04-03 06:28] LABS: ALANINE AMINOTRANSFERASE 119 U/L (9-52); ALBUMIN 3.5 g/dL (3.5-5.0); ALKALINE PHOSPHATASE 63 U/L (38-126); ANION GAP 7 (5-19); ASPARTATE AMINO TRANSFERASE 26 U/L (14-36); BILIRUBIN,DIRECT 0.3 mg/dL (0.0-0.4); BILIRUBIN,TOTAL 0.3 mg/dL (0.2-1.3); BLOOD UREA NITROGEN 19 mg/dL (7-20); CALCIUM 8.5 mg/dL (8.4-10.2); CARBON DIOXIDE 35 mmol/L (22-30); CHLORIDE 99 mmol/L (98-107); GLUCOSE 142 mg/dL (75-110); POTASSIUM 4.4 mmol/L (3.6-5.0); SODIUM 141.2 mmol/L (137-145); TOTAL PROTEIN 6.3 g/dL (6.3-8.2)
[2019-04-03] MEDS: IPRATROPIUM/ALBUTEROL 0.5-2.5 MG/3 ML AMPUL NEB SCH ×3 (07:28→20:16)
--- NOTE | 2019-04-03 07:55 | PROGRESS NOTE E ---
Progress Note NAME: JERMAIN LIN : 1950 AGE: 68Y DATE: 03/31/2019 ROOM: 308 SUBJECTIVE: The patient is a 68-year-old female who came in with acute respiratory failure requiring BiPAP therapy, and altered mental status. Currently feeling better. The patient is able to tolerate nasal cannula. Uses the BiPAP for sleep and as needed during the daytime. The patient claims that she has a BiPAP at home, so she can use when discharged. The patient is getting presently BREO inhaler 200 mcg once daily, and Spiriva inhaler once daily. Also, the patient is tolerating the theophylline 100 mg tablet p.o. daily and the Daliresp 500 mg p.o. daily. No nausea, no vomiting, no diarrhea. No fever, no chills. Denies any increasing cough or purulent sputum production. No hemoptysis, no chest pain. Breathing is better now than when she came in OBJECTIVE: GENERAL: The patient is awake, alert, coherent, oriented x3. VITAL SIGNS: Temperature 97.8, blood pressure 115/51, heart rate 96, respiratory rate 33, saturation 93% to 100% on BiPAP 40% FiO2; is on 4 liters nasal cannula if not on BiPAP. HEENT: Eyes: No conjunctival pallor. Ears/nose/throat: No ear drainage, no nasal discharge. CHEST/LUNGS: No wheezing, no rhonchi. CARDIOVASCULAR: S1, S2 distinct. No murmur. ABDOMEN: Flabby. Positive bowel sounds. Soft, nondistended, nontender. EXTREMITIES: No joint swelling, no cellulitis. LABORATORY: CBC done this morning showed white count of 9.4, hemoglobin 11, hematocrit 34.4, platelet count 240. ABG done this morning showed pH of 7.38, pCO2 of 78.2, and pO2 is 74.4 on 50% FiO2. ASSESSMENT: 1. ACUTE ON CHRONIC RESPIRATORY FAILURE REQUIRING BIPAP THERAPY. Currently improved, not in acute bronchospasm. 2. VERY SEVERE END-STAGE CHRONIC OBSTRUCTIVE PULMONARY DISEASE AND EMPHYSEMA. PLAN: The patient will taper the prednisone, taper slowly. The patient instructed to wear the BiPAP with sleep or if she is short of breath during the daytime. Patient to continue the BREO 200 mg daily at home and Spiriva inhaler one capsule daily. The patient will continue the Daliresp once daily 500 mcg and the theophylline 100 mg tablet p.o. daily. Recommend pulmonary followup two to three weeks after hospital discharge. Will sign off tonight. If you have any questions, please feel free to call me. DICTATING PHYSICIAN: MICHELL KOROMA MD,SANDRA,MPH [id number] PHY#: [id number] ID: [id number] JOB#: [id number] ACCT: [id number] cc: > MTDD
--- NOTE | 2019-04-03 08:09 | PROGRESS NOTE E ---
Progress Note NAME: JERMAIN LIN : 1950 AGE: 68Y DATE: 04/02/2019 ROOM: 308 SUBJECTIVE: The patient is a 68-year-old female who came in with acute on chronic respiratory failure requiring BiPAP therapy. Treated for pneumonia acute exacerbation. Currently feeling a lot better on BiPAP of 40% FiO2 and saturating about 93-94%. OBJECTIVE: VITAL SIGNS: Feeling well with a temperature of 97.5, T-max of 98.3. Heart rate 120, respiratory rate is 23, and saturation is 91% on 40% FiO2. HEENT: Eyes: No conjunctival pallor. Ears/nose/throat: No ear drainage, no nasal discharge. CHEST/LUNGS: No wheezing, no crackles. CARDIOVASCULAR: S1, S2 distinct. ABDOMEN: Flabby. Positive bowel sounds. Soft, nondistended, nontender. EXTREMITIES: No swelling, no cellulitis. LABORATORY: CBC done yesterday showed white count of 5.9, hemoglobin 11, hematocrit 34.5, platelet count 231. ABG done yesterday at 5:30 a.m. showed pH 7.48, pCO2 of 81, pO2 of 93, and bicarb 37.4 on 4 liters. ASSESSMENT: 1. ACUTE ON CHRONIC RESPIRATORY FAILURE REQUIRING BIPAP THERAPY. CURRENTLY IMPROVED AND STABLE. 2. CHRONIC OBSTRUCTIVE PULMONARY DISEASE EXACERBATION. CURRENTLY IMPROVED AND NOT IN BRONCHOSPASM. 3. BRONCHITIS. PLAN: 1. Continue antibiotics. Continue BREO 20 mcg once daily. Recommend tapering off Solu-Medrol and convert to prednisone, slow gradual tapering dose. Continue Singulair and continue Spiriva inhaler 1 puff daily and theophylline 100 mg daily and Daliresp 500 mcg daily. 2. Recommend pulmonary clinic follow up in two weeks following hospital discharge. If you have any questions, please feel free to call me. I will sign off tonight. DICTATING PHYSICIAN: MICHELL KOROMA MD,SANDRA,MPH [id number] PHY#: [id number] ID: [id number] JOB#: [id number] ACCT: [id number] cc: > MTDD
[2019-04-03] MEDS: FLUTICASONE/VILANTEROL 200-25 MCG/DOSE IH SCH (11:32)
[2019-04-03] MEDS: DOCUSATE SODIUM 100 MG CAPSULE PO SCH ×2 (11:32→18:22)
[2019-04-03] MEDS: GUAIFENESIN 600 MG TABLET.SA PO SCH ×2 (11:33→21:05)
[2019-04-03] MEDS: ASPIRIN 81 MG TABLET, ENT COATED PO SCH (11:33)
[2019-04-03] MEDS: ACETAZOLAMIDE 250 MG TABLET PO SCH ×2 (11:34→21:05)
[2019-04-03] MEDS: BUPROPION HCL 75 MG TABLET PO SCH ×2 (11:34→21:05)
[2019-04-03] MEDS: TIOTROPIUM BROMIDE DPI 5 CAP/KIT (18 MCG/CAP) IH SCH (11:34)
[2019-04-03] MEDS: THEOPHYLLINE ANHYDROUS 100 MG TAB.SR.12H PO SCH (11:34)
[2019-04-03] MEDS: ROFLUMILAST 500 MCG TABLET PO SCH (11:34)
[2019-04-03] MEDS: ENOXAPARIN SODIUM INJ 30 MG/0.3 ML DISP.SYRIN SUBCUT SCH (11:36)
[2019-04-03] MEDS: CEFEPIME HCL 2 GM in DEXTROSE 5%-WATER 50 ML IV SCH (11:36)
[2019-04-03] MEDS: ISOSORBIDE MONONITRATE 30 MG TAB.ER.24H PO SCH (11:37)
--- NOTE | 2019-04-03 19:15 | PDOC PROGRESS REPORT ---
Subjective Progress Note for:: 04/03/19 Subjective:: Patient remain compliant with BiPAP support usage. No chest pain or palpitation. No fever or chills. No nausea, vomiting or abdominal pain. There has been recurrent diarrhea so far today. Her blood and urine culture are no growth after appropriate period of incubation. Reason For Visit: RESPIRATORY FAIURE, COPD Physical Exam Vital Signs: Temp Pulse Resp BP Pulse Ox 99.2 F 115 H 19 146/75 H 96 04/03/19 15:24 04/03/19 15:24 04/03/19 15:24 04/03/19 15:24 04/03/19 17:03 Pulse Oximeter Continuous Start: 03/29/19 00:29 Freq: RTQ4 Status: Active Protocol: Document 04/03/19 17:03 [facility] (Rec: 04/03/19 17:06 [facility] [id number]) Pulse Oximetry Assessment Oxygen Saturation (92-100) 96 Oxygen Flow Rate (L/min) 5 Oxygen Delivery Method Nasal Cannula Fraction of Inspired Oxygen (FIO2) 40 Equipment Usage Equipment in Use Continuous SpO2 Machine # N2 Intake & Output 04/02/19 04/03/19 04/04/19 06:59 06:59 06:59 Intake Total 3172 1677 761 Output Total 2930 2550 1552 Balance 383 -108 -791 Weight 62.5 kg 60.1 kg Physical Exam: General appearance: PRESENT: mild distress - on BiPAP support Head exam: PRESENT: atraumatic, normocephalic Eye exam: PRESENT: conjunctiva pink. ABSENT: pallor, scleral icterus Ear exam: PRESENT: normal external ear exam Mouth exam: PRESENT: moist Respiratory exam: PRESENT: decreased breath sounds, prolonged expiratory phase, minimal rhonchi Cardiovascular exam: PRESENT: RRR. ABSENT: diastolic murmur, rubs, systolic murmur GI/Abdominal exam: PRESENT: normal bowel sounds, soft. ABSENT: distended, guarding, mass, organomegaly, rebound, tenderness Extremities exam: ABSENT: pedal edema Neurological exam: PRESENT: alert, awake, oriented to person, oriented to place, oriented to time, oriented to situation, CN II-XII grossly intact. ABSENT: motor sensory deficit Psychiatric exam: PRESENT: anxious Skin exam: PRESENT: dry, warm Results Laboratory Results: 04/03/19 05:02 04/03/19 05:02 04/03/19 04/03/19 05:02 05:02 WBC 5.6 RBC 3.75 Hgb 11.5 L Hct 36.6 MCV 97 MCH 30.7 MCHC 31.6 L RDW 13.7 Plt Count 263 Seg Neutrophils % 89.5 H Lymphocytes % 6.9 L Monocytes % 3.5 Eosinophils % 0.0 Basophils % 0.1 Absolute Neutrophils 5.0 Absolute Lymphocytes 0.4 L Absolute Monocytes 0.2 Absolute Eosinophils 0.0 Absolute Basophils 0.0 Sodium 141.2 Potassium 4.4 Chloride 99 Carbon Dioxide 35 H Anion Gap 7 BUN 19 Creatinine 0.46 L Est GFR ( Amer) > 60 Est GFR (Non-Af Amer) > 60 Glucose 142 H Calcium 8.5 Magnesium 2.2 Total Bilirubin 0.3 AST 26 ALT 119 H Alkaline Phosphatase 63 Total Protein 6.3 Albumin 3.5 03/28/19 20:36 Blood Blood Culture - Final NO GROWTH IN 5 DAYS 03/28/19 16:25 Blood Blood Culture - Final NO GROWTH IN 5 DAYS 03/28/19 03/28/19 16:25 16:25 Creatine Kinase 22 L CK-MB (CK-2) 0.52 Troponin I 0.031 Impressions: Abdomen/Pelvis CT 03/28/19 18:19 IMPRESSION: Small right pleural effusion and basilar subsegmental atelectasis. There are areas of mucous plugging in the right lower lobe and scattered areas of tree-in-bud opacities -small airways disease. No acute findings in the abdomen or pelvis. Chest X-Ray 03/31/19 00:00 IMPRESSION: Obstructive lung disease. No acute findings Assessment & Plan - Diagnosis (1) COPD with acute exacerbation Is this a current diagnosis for this admission?: Yes (2) Hypoxemia requiring supplemental oxygen Is this a current diagnosis for this admission?: Yes (3) Chronic respiratory failure with hypoxia and hypercapnia Is this a current diagnosis for this admission?: Yes (4) HTN (hypertension) Qualifiers: Hypertension type: essential hypertension Qualified Code(s): I10 - Essential (primary) hypertension Is this a current diagnosis for this admission?: Yes (5) HLD (hyperlipidemia) Qualifiers: Hyperlipidemia type: unspecified Qualified Code(s): E78.5 - Hyperlipidemia, unspecified Is this a current diagnosis for this admission?: Yes (6) Degenerative disc disease Qualifiers: Spinal region: lumbosacral Qualified Code(s): M51.37 - Other intervertebral disc degeneration, lumbosacral region Is this a current diagnosis for this admission?: Yes (7) Chronic, continuous use of opioids Is this a current diagnosis for this admission?: Yes (8) GERD (gastroesophageal reflux disease) Qualifiers: Esophagitis presence: without esophagitis Qualified Code(s): K21.9 - Gastro-esophageal reflux disease without esophagitis Is this a current diagnosis for this admission?: Yes - Time Time Spent with patient: 25-34 minutes Medications reviewed and adjusted accordingly: Yes Anticipated discharge: Home with Homehealth Within: Other - Inpatient Certification Based on my medical assessment, after consideration of the patient's comorbidities, presenting symptoms, or acuity I expect that the services needed warrant INPATIENT care.: Yes I certify that my determination is in accordance with my understanding of Medicare's requirements for reasonable and necessary INPATIENT services [42 CFR 412.3e].: Yes Medical Necessity: Significant Comorbidiites Make Outpatient Treatment Too Risky, Need Close Monitoring Due to Risk of Patient Decompensation, Need For IV Fluids, Need For Continuous Telemetry Monitoring, Need for Nebulizer Therapy and Monitoring of Response, Need for IV Antibiotics, Risk of Complication if Not Cared For in Hospital, Risk of Diagnosis Which Will Require Inpatient Eval/Care/Monitoring Post Hospital Care: D/C Advertising Executive Documentation - Plan Summary Plan Summary: D/C Cefepime coverage. Continue all other current medication management. Monitor diarrhea for possible antibiotic induced diarrhea.
[2019-04-03] MEDS ORDERED: PREDNISONE 20 MG TABLET PO ONE (19:22)
[2019-04-03] MEDS: MONTELUKAST SODIUM 10 MG TABLET PO SCH (21:05)
[2019-04-03] MEDS: NORMAL SALINE 1000 ML 1,000 ML IV PRN (21:48)
[2019-04-04] MEDS: NYSTATIN 500000 UNIT/5 ML UDCUP PO SCH ×5 (00:09→23:49)
[2019-04-04] MEDS: GABAPENTIN 300 MG CAPSULE PO SCH ×3 (06:17→21:39)
[2019-04-04] MEDS: PANTOPRAZOLE SODIUM 20 MG TABLET.DR PO SCH (06:17)
[2019-04-04 06:50] LABS: ARTERIAL BLOOD BASE EXCESS 9.3 mmol/L; ARTERIAL BLOOD FIO2 5L; ARTERIAL BLOOD H2CO3 2.13 mmol/L (1.05-1.35); ARTERIAL BLOOD HCO3 37.6 mmol/L (20-24); ARTERIAL BLOOD O2 SATURATION 91.4 % (94-98); ARTERIAL BLOOD PH 7.34 (7.35-7.45); ARTERIAL BLOOD PO2 66.5 mmHg (80-100); ARTERIAL BLOOD TOTAL CO2 39.8 mmol/L (21-25)
[2019-04-04 06:51] LABS: ARTERIAL BLOOD PCO2 70.7 mmHg (35-45)
[2019-04-04] MEDS: IPRATROPIUM/ALBUTEROL 0.5-2.5 MG/3 ML AMPUL NEB SCH ×3 (07:22→19:55)
[2019-04-04] MEDS: DOCUSATE SODIUM 100 MG CAPSULE PO SCH ×2 (10:13→18:02)
[2019-04-04] MEDS: FLUTICASONE/VILANTEROL 200-25 MCG/DOSE IH SCH (10:17)
[2019-04-04] MEDS: ASPIRIN 81 MG TABLET, ENT COATED PO SCH (10:18)
[2019-04-04] MEDS: TIOTROPIUM BROMIDE DPI 5 CAP/KIT (18 MCG/CAP) IH SCH (10:18)
[2019-04-04] MEDS: ISOSORBIDE MONONITRATE 30 MG TAB.ER.24H PO SCH (10:19)
[2019-04-04] MEDS: PREDNISONE 20 MG TABLET PO SCH (10:19)
[2019-04-04] MEDS: GUAIFENESIN 600 MG TABLET.SA PO SCH ×2 (10:20→21:39)
[2019-04-04] MEDS: ACETAZOLAMIDE 250 MG TABLET PO SCH ×2 (10:20→21:39)
[2019-04-04] MEDS: THEOPHYLLINE ANHYDROUS 100 MG TAB.SR.12H PO SCH (10:21)
[2019-04-04] MEDS: ROFLUMILAST 500 MCG TABLET PO SCH (10:21)
[2019-04-04] MEDS: BUPROPION HCL 75 MG TABLET PO SCH ×2 (10:21→21:39)
[2019-04-04] MEDS: ENOXAPARIN SODIUM INJ 30 MG/0.3 ML DISP.SYRIN SUBCUT SCH (10:21)
--- NOTE | 2019-04-04 16:28 | PDOC PROGRESS REPORT ---
Subjective Progress Note for:: 04/04/19 Subjective:: Patient remain compliant with BiPAP support usage. No chest pain or palpitation. No fever or chills. No nausea, vomiting or abdominal pain. There is improvement in her diarrhea. Reason For Visit: RESPIRATORY FAIURE, COPD Physical Exam Vital Signs: Temp Pulse Resp BP Pulse Ox 98.5 F 131 H 34 H 140/72 H 99 04/04/19 11:00 04/04/19 14:00 04/04/19 13:35 04/04/19 11:00 04/04/19 13:35 Pulse Oximeter Continuous Start: 03/29/19 00:29 Freq: RTQ4 Status: Active Protocol: Document 04/04/19 11:47 [facility] (Rec: 04/04/19 11:50 [facility] [email or web address]) Pulse Oximetry Assessment Oxygen Saturation (92-100) 97 Oxygen Delivery Method Bi-pap Fraction of Inspired Oxygen (FIO2) 40 Equipment Usage Equipment in Use Continuous SpO2 Machine # N2 Intake & Output 04/03/19 04/04/19 04/05/19 06:59 06:59 06:59 Intake Total 1677 1760 373 Output Total 2550 2677 Balance -873 -917 373 Weight 60.1 kg 59.7 kg Physical Exam: General appearance: PRESENT: mild distress - on BiPAP support Head exam: PRESENT: atraumatic, normocephalic Eye exam: PRESENT: conjunctiva pink. ABSENT: pallor, scleral icterus Ear exam: PRESENT: normal external ear exam Mouth exam: PRESENT: moist Respiratory exam: PRESENT: decreased breath sounds, prolonged expiratory phase, minimal rhonchi Cardiovascular exam: PRESENT: RRR. ABSENT: diastolic murmur, rubs, systolic murmur GI/Abdominal exam: PRESENT: normal bowel sounds, soft. ABSENT: distended, guarding, mass, organomegaly, rebound, tenderness Extremities exam: ABSENT: pedal edema Neurological exam: PRESENT: alert, awake, oriented to person, oriented to place, oriented to time, oriented to situation, CN II-XII grossly intact. ABSENT: motor sensory deficit Psychiatric exam: PRESENT: anxious Skin exam: PRESENT: dry, warm Results Laboratory Results: 04/03/19 05:02 04/03/19 05:02 04/04/19 06:35 Carbonic Acid 2.13 H HCO3/H2CO3 Ratio 17:1 ABG pH 7.34 L ABG pCO2 70.7 H* ABG pO2 66.5 L ABG HCO3 37.6 H ABG O2 Saturation 91.4 L ABG Base Excess 9.3 FiO2 5L 03/28/19 03/28/19 16:25 16:25 Creatine Kinase 22 L CK-MB (CK-2) 0.52 Troponin I 0.031 Impressions: Abdomen/Pelvis CT 03/28/19 18:19 IMPRESSION: Small right pleural effusion and basilar subsegmental atelectasis. There are areas of mucous plugging in the right lower lobe and scattered areas of tree-in-bud opacities -small airways disease. No acute findings in the abdomen or pelvis. Chest X-Ray 03/31/19 00:00 IMPRESSION: Obstructive lung disease. No acute findings Assessment & Plan - Diagnosis (1) COPD with acute exacerbation Is this a current diagnosis for this admission?: Yes (2) Hypoxemia requiring supplemental oxygen Is this a current diagnosis for this admission?: Yes (3) Chronic respiratory failure with hypoxia and hypercapnia Is this a current diagnosis for this admission?: Yes (4) HTN (hypertension) Qualifiers: Hypertension type: essential hypertension Qualified Code(s): I10 - Essential (primary) hypertension Is this a current diagnosis for this admission?: Yes (5) HLD (hyperlipidemia) Qualifiers: Hyperlipidemia type: unspecified Qualified Code(s): E78.5 - Hyperlipidemia, unspecified Is this a current diagnosis for this admission?: Yes (6) Degenerative disc disease Qualifiers: Spinal region: lumbosacral Qualified Code(s): M51.37 - Other intervertebral disc degeneration, lumbosacral region Is this a current diagnosis for this admission?: Yes (7) Chronic, continuous use of opioids Is this a current diagnosis for this admission?: Yes (8) GERD (gastroesophageal reflux disease) Qualifiers: Esophagitis presence: without esophagitis Qualified Code(s): K21.9 - Gastro-esophageal reflux disease without esophagitis Is this a current diagnosis for this admission?: Yes - Time Time Spent with patient: 25-34 minutes Medications reviewed and adjusted accordingly: Yes Anticipated discharge: Home with Homehealth Within: Other - Inpatient Certification Based on my medical assessment, after consideration of the patient's comorbidities, presenting symptoms, or acuity I expect that the services needed warrant INPATIENT care.: Yes I certify that my determination is in accordance with my understanding of Medicare's requirements for reasonable and necessary INPATIENT services [42 CFR 412.3e].: Yes Medical Necessity: Significant Comorbidiites Make Outpatient Treatment Too Risky, Need Close Monitoring Due to Risk of Patient Decompensation, Need For IV Fluids, Need For Continuous Telemetry Monitoring, Need for Nebulizer Therapy and Monitoring of Response, Risk of Complication if Not Cared For in Hospital, Risk of Diagnosis Which Will Require Inpatient Eval/Care/Monitoring Post Hospital Care: D/C Barrel Bung Remover And Dumper Documentation - Plan Summary Plan Summary: Continue current medication management. Possible discharge home with EXHIBITION DESIGNER services tomorrow.
[2019-04-04] MEDS: MONTELUKAST SODIUM 10 MG TABLET PO SCH (21:39)
[2019-04-04] MEDS: NORMAL SALINE 1000 ML 1,000 ML IV PRN (21:39)
[2019-04-04] MEDS: ACETAMINOPHEN 325 MG TABLET PO PRN (21:43)
[2019-04-05] MEDS: GABAPENTIN 300 MG CAPSULE PO SCH ×2 (06:45→13:02)
[2019-04-05] MEDS: NYSTATIN 500000 UNIT/5 ML UDCUP PO SCH ×2 (06:45→13:02)
[2019-04-05] MEDS: PANTOPRAZOLE SODIUM 20 MG TABLET.DR PO SCH (06:45)
[2019-04-05] MEDS: ACETAMINOPHEN 325 MG TABLET PO PRN (06:48)
[2019-04-05] MEDS: IPRATROPIUM/ALBUTEROL 0.5-2.5 MG/3 ML AMPUL NEB SCH ×2 (09:25→14:11)
[2019-04-05] MEDS: ISOSORBIDE MONONITRATE 30 MG TAB.ER.24H PO SCH (09:46)
[2019-04-05] MEDS: GUAIFENESIN 600 MG TABLET.SA PO SCH (09:46)
[2019-04-05] MEDS: ACETAZOLAMIDE 250 MG TABLET PO SCH (09:46)
[2019-04-05] MEDS: FLUTICASONE/VILANTEROL 200-25 MCG/DOSE IH SCH (09:46)
[2019-04-05] MEDS: PREDNISONE 20 MG TABLET PO SCH (09:46)
[2019-04-05] MEDS: ASPIRIN 81 MG TABLET, ENT COATED PO SCH (09:46)
[2019-04-05] MEDS: ROFLUMILAST 500 MCG TABLET PO SCH (09:47)
[2019-04-05] MEDS: ENOXAPARIN SODIUM INJ 30 MG/0.3 ML DISP.SYRIN SUBCUT SCH (09:47)
[2019-04-05] MEDS: THEOPHYLLINE ANHYDROUS 100 MG TAB.SR.12H PO SCH (09:48)
[2019-04-05] MEDS: TIOTROPIUM BROMIDE DPI 5 CAP/KIT (18 MCG/CAP) IH SCH (09:48)
[2019-04-05] MEDS: BUPROPION HCL 75 MG TABLET PO SCH (09:48)
[2019-04-05] MEDS: DOCUSATE SODIUM 100 MG CAPSULE PO SCH (11:33)
[2019-04-05 12:27] VITALS: BP 124/67
--- NOTE | 2019-04-05 13:24 | PDOC DISCHARGE SUMMARY ---
General - Admit/Disc Date/PCP Admission Date/Primary Care Provider: 03/28/19 19:43 SUE ANDERSON Discharge Date: 04/05/19 - Discharge Diagnosis (1) COPD with acute exacerbation Is this a current diagnosis for this admission?: Yes (2) Hypoxemia requiring supplemental oxygen Is this a current diagnosis for this admission?: Yes (3) Chronic respiratory failure with hypoxia and hypercapnia Is this a current diagnosis for this admission?: Yes (4) HTN (hypertension) Is this a current diagnosis for this admission?: Yes (5) HLD (hyperlipidemia) Is this a current diagnosis for this admission?: Yes (6) Degenerative disc disease Is this a current diagnosis for this admission?: Yes (7) Chronic, continuous use of opioids Is this a current diagnosis for this admission?: Yes (8) GERD (gastroesophageal reflux disease) Is this a current diagnosis for this admission?: Yes - Additional Information Resuscitation Status: Full Code Prescriptions: Acetazolamide [Diamox 250 mg Tab] 250 mg PO Q12 #60 tablet Prednisone [Deltasone 5 mg Tablet] 5 mg PO ASDIR PRN #43 tablet PRN Reason: Theophylline Anhydrous [[place]bino-Dur 100 mg Tab.sr] 100 mg PO DAILY #60 tab.sr.12h Home Medications: Albuterol Sulfate 4 mg PO TID 03/11/19 Albuterol Sulfate [Ventolin Hfa 8 gm Mdi (1 Mdi/ER Disp)] 2 puff IH Q6 03/11/19 Alendronate Sodium [Fosamax 70 mg Tablet] 70 mg PO GALAN@0800 03/11/19 Benzonatate [Tessalon Perle 100 mg Capsule] 100 mg PO TIDP PRN 03/11/19 Bupropion HCl [Wellbutrin 75 mg Tablet] 150 mg PO Q12 03/11/19 Docusate Sodium [Colace 100 mg Capsule] 100 mg PO BID 03/11/19 Gabapentin [Neurontin 300 mg Capsule] 300 mg PO Q8 03/11/19 Guaifenesin [Mucinex Sr 600 mg Tablet.sa] 600 mg PO Q12 03/11/19 Ipratropium/Albuterol Sulfate [Combivent Respimat 4 gm Mdi] 1 puff IH Q6 03/11/19 Ipratropium/Albuterol Sulfate [Duoneb 3 ml Ampul] 3 ml NEB Q6 03/11/19 Isosorbide Mononitrate [Imdur 30 mg Tablet.er] 30 mg PO DAILY 03/11/19 Montelukast Sodium [Singulair 10 mg Tablet] 10 mg PO DAILY 03/11/19 Naloxone HCl [Evzio] 2 mg IM .EVERY 3 MIN PRN 03/11/19 [place]-3 Acid Ethyl Esters [Lovaza 1 gm Capsule] 1 gm PO DAILY 03/11/19 Omeprazole 40 mg PO DAILY 03/11/19 Oxycodone HCl [Oxycontin] 20 mg PO Q12 03/11/19 Oxycodone HCl/Acetaminophen [Percocet 7.5-325 mg Tablet] 1 tab PO Q6HP PRN 03/11/19 Tiotropium [place] [Spiriva Respimat] 1 puff IH BID 03/11/19 Fluticasone/Vilanterol [Breo 200-25 Mcg Ellipta 14 Dose/Dpi] 1 inh IH DAILY #1 inhaler 03/21/19 Nystatin [Mycostatin 500,000 Unit/5 ml Susp Udcup] 100,000 unit PO Q6 #30 udc 03/21/19 Aspirin [Ecotrin] 81 mg PO DAILY 03/28/19 Acetazolamide [Diamox 250 mg Tab] 250 mg PO Q12 #60 tablet 04/05/19 Prednisone [Deltasone 5 mg Tablet] 5 mg PO ASDIR PRN #43 tablet 04/05/19 Theophylline Anhydrous [Albino-Dur 100 mg Tab.sr] 100 mg PO DAILY #60 tab.sr.12h 04/05/19 History of Present Illness Patient complains of: Difficulty with breathing History of Present Illness: JERMAIN LIN is a 68 year old female. This is a 68-year-old female a patient of Dr. Anderson currently on a BiPAP at home presents in emergency department via EMS doing fine to be unresponsive. EMS state that the patient was found to be her son unresponsive in her recliner chair. EMS stated upon arrival to the skin the patient was lying on the floor on her BiPAP machine with the oxygen saturations rate is 55 Listed the patient was recently in the emergency department due to the COPD acute exacerbations and the weakness and the discharge home patient I will look at the reviewed the records Is a noncompliance on a BiPAP Patient also see a pulmonary Dr. Kelly Patient when I saw it in the floor alert awake oriented talking and eating without any problem and patient's son on the bedside discuss with the patient's pulmonary and suggest to continues to BiPAP he saw the patient's and suggested no need to change anything Discussed the lab work with him today Still complaining some cough congestions Hospital Course Hospital Course: Patient was managed as case of acute exacerbated COPD and chronic respiratory failure with hypoxemia and hypercapnia. She was not compliant with BiPAP usage and found with profound hypoxemia by EMS crew in the field. She remain on BiPAP support with some improvement in her respiratory indices. She was seen in consultation by Dr. Bush, reduction plant supervisor. She was transition to oral Prednisone and started on Acetozolamide during this hospitalization to naif in management of her hypercapnia. She will be discharged home today. She will follow up with Dr Bush and myself as instructed upon discharge. Physical Exam Vital Signs: Temp Pulse Resp BP Pulse Ox 98.8 F 126 H 34 H 124/67 96 04/05/19 12:02 04/05/19 12:02 04/05/19 12:02 04/05/19 12:02 04/05/19 12:02 Pulse Oximeter Continuous Start: 03/29/19 00:29 Freq: RTQ4 Status: Active Protocol: Document 04/05/19 09:25 [facility] (Rec: 04/05/19 09:35 [facility] [id number]) Pulse Oximetry Assessment Oxygen Saturation (92-100) 100 Oxygen Delivery Method Bi-pap Fraction of Inspired Oxygen (FIO2) 40 Equipment Usage Equipment in Use Continuous SpO2 Machine # 2 Intake & Output 04/04/19 04/05/19 04/06/19 06:59 06:59 06:59 Intake Total 1760 1595 572 Output Total 2672 1750 200 Balance -917 -155 372 Weight 59.7 kg 59.1 kg Physical Exam: General appearance: PRESENT: mild distress - on BiPAP support Head exam: PRESENT: atraumatic, normocephalic Eye exam: PRESENT: conjunctiva pink. ABSENT: pallor, scleral icterus Ear exam: PRESENT: normal external ear exam Mouth exam: PRESENT: moist Respiratory exam: PRESENT: decreased breath sounds, prolonged expiratory phase, minimal rhonchi Cardiovascular exam: PRESENT: RRR. ABSENT: diastolic murmur, rubs, systolic murmur GI/Abdominal exam: PRESENT: normal bowel sounds, soft. ABSENT: distended, guarding, mass, organomegaly, rebound, tenderness Extremities exam: ABSENT: pedal edema Neurological exam: PRESENT: alert, awake, oriented to person, oriented to place, oriented to time, oriented to situation, CN II-XII grossly intact. ABSENT: motor sensory deficit Psychiatric exam: PRESENT: anxious Skin exam: PRESENT: dry, warm Results Laboratory Results: 04/03/19 05:02 04/03/19 05:02 03/28/19 03/28/19 16:25 16:25 Creatine Kinase 22 L CK-MB (CK-2) 0.52 Troponin I 0.031 Impressions: Abdomen/Pelvis CT 03/28/19 18:19 IMPRESSION: Small right pleural effusion and basilar subsegmental atelectasis. There are areas of mucous plugging in the right lower lobe and scattered areas of tree-in-bud opacities -small airways disease. No acute findings in the abdomen or pelvis. Chest X-Ray 03/31/19 00:00 IMPRESSION: Obstructive lung disease. No acute findings Qualifiers - * PATIENT BEING DISCHARGED WITH ANY OF THE FOLLOWING DIAGNOSIS: No Acute Heart Failure Is this a Heart Failure Patient?: No Plan Discharge Plan: D/C home today. Follow up with Dr. Bush and myself as instructed upon discharge.
[2019-04-06] MEDS ORDERED: (PENDING PHARMACY ID) (Alendronate Sodium [Fosamax 70 Mg Tablet] 70 MG) PO SCH (08:00)
== END 2019-04-05 14:00 | disposition home or self-care (01) | DRG 190 ==
LOC: ER 16:18 → EH 19:43 → 3N 22:25
PROVIDERS: ADMIT Family Medicine; ATTEND Internal Medicine Geriatric Medicine
PROC: 5A09557 Assistance with Respiratory Ventilation, Greater than 96 Consecutive Hours, Continuous Positive Airway Pressure (ICD-10-PCS; principal; 2019-03-28)
DX: J43.9 Emphysema, unspecified (principal); J18.9 Pneumonia, unspecified organism; J96.22 Acute and chronic respiratory failure with hypercapnia; J96.21 Acute and chronic respiratory failure with hypoxia; F11.20 Opioid dependence, uncomplicated; I10 Essential (primary) hypertension; E78.5 Hyperlipidemia, unspecified; M19.90 Unspecified osteoarthritis, unspecified site; K21.9 Gastro-esophageal reflux disease without esophagitis; M51.37 Other intervertebral disc degeneration, lumbosacral region; D64.9 Anemia, unspecified; E03.9 Hypothyroidism, unspecified; Z88.2 Allergy status to sulfonamides; Z87.891 Personal history of nicotine dependence; Z79.51 Long term (current) use of inhaled steroids; Z79.899 Other long term (current) drug therapy; Z79.82 Long term (current) use of aspirin; Z91.19 Patient's noncompliance with other medical treatment and regimen
CPT/HCPCS: 36415; 36600; 71045; 74176; 80053; 81001; 82550; 82553; 82785; 82803; 83605; 83735; 84484; 85025; 87040; 87086; 87493; 93005; 93010; 94640; 94660; 94762; 96361; 96374; 99285; J0692; J1650; J2920; J2930; J3490; J7030; J7060; J7512; J7620

== ENCOUNTER 2019-04-06 20:01 | Inpatient (IN) | payer MEDICARE, MEDICAID ==
--- NOTE | 2019-04-06 20:30 | ER Document Report ---
ED General - General Chief Complaint: Shortness Of Breath Stated Complaint: WEAKNESS Time Seen by Provider: 04/06/19 20:23 Cannot obtain history due to: Altered mental status Notes: Patient is a 68-year-old female with end-stage COPD, chronic oxygen and BiPAP dependence, chronic opiate dependence, hypertension, presents with her son due to concerns of decreasing mental status. Patient was just discharged from the ospital less than 48 hours ago. The son reports that he has had her almost continuously on BiPAP since discharge but that he feels that her mental status is continued to deteriorate since being discharged. Patient herself is quite lethargic, states her name but does not provide any additional meaningful history. TRAVEL OUTSIDE OF THE [place] IN LAST 30 DAYS: No - Related Data Allergies/Adverse Reactions: Sulfa (Sulfonamide Antibiotics) Allergy (Verified 05/03/13 17:10) hives/swelling Past Medical History - General Information source: Relative - Social History Smoking Status: Former Smoker Frequency of alcohol use: None Drug Abuse: None Lives with: Family Family History: Reviewed & Not Pertinent - Past Medical History Cardiac Medical History: Reports: Hx Hypercholesterolemia, Hx Hypertension Pulmonary Medical History: Reports: Hx COPD Endocrine Medical History: Reports: Hx Hypothyroidism Renal/ Medical History: Denies: Hx Peritoneal Dialysis GI Medical History: Reports: Hx Gastroesophageal Reflux Disease Musculoskeletal Medical History: Reports Hx Arthritis Psychiatric Medical History: Denies: Hx Depression - Immunizations Hx Diphtheria, Pertussis, Tetanus Vaccination: No Hx Pneumococcal Vaccination: 11/26/09 Review of Systems - Review of Systems -: Yes ROS unobtainable due to patient's medical condition Physical Exam - Vital signs Vitals: Resp Pulse Ox 19 86 L 04/06/19 20:08 04/06/19 20:08 Interpretation: Hypoxic Notes: PHYSICAL EXAMINATION: GENERAL: Frail elderly female. Quite somnolent, minimally responsive to loud voice but does wake easily to noxious stimuli HEAD: Atraumatic, normocephalic. EYES: Pupils equal round and reactive to light, extraocular movements intact, sclera anicteric, conjunctiva are normal. ENT: nares patent, oropharynx clear without exudates. Dry mucous membranes. NECK: Normal range of motion, supple without lymphadenopathy LUNGS: Diminished air movement in all lung millan without retractions or distre ss. Faint expiratory wheezing in the upper lobes bilaterally. HEART: Regular rate and rhythm without murmurs ABDOMEN: Soft, nontender, normoactive bowel sounds. No guarding, no rebound. No masses appreciated. EXTREMITIES:no pitting or edema. No cyanosis. NEUROLOGICAL: No focal neurological deficits. Moves all extremities spontaneously and on command. PSYCH: Very lethargic, oriented only to person SKIN: Warm, Dry, normal turgor, no rashes or lesions noted. Course - Re-evaluation Re-evalutation: 04/06/19 20:28 Documentation is delayed secondary to patient being critically ill at time of presentation. Patient was found to be hypoxic in triage on 5 L nasal cannula into the 60s. I was called to the room secondary to the patient being altered. When into the room the patient is extremely lethargic but does wake to loud voice. She is able to state her name as well as the name of her son but she is otherwise disoriented, does not know location, year or any current events. Her's son at the bedside states that prior to the most recent hospitalization she would answer these questions with ease although notes ever since being discharged yesterday the patient has been very lethargic. Patient is a DNI per the son at the bedside and this is confirmed by the patient. The patient is quite lethargic, was immediately placed back on BiPAP although if she was not a DNI think it would be appropriate to proceed with intubation at this time given her suppressed mental status. Will proceed with standard work-up, chest x-ray, and continue to be reassessed at regular intervals. Patient is in guarded condition and will continue be reassessed at regular intervals. 04/06/19 22:09 Patient's mental status has remained relatively unchanged on 2 subsequent assessments. Her venous blood gas does show a mild hypercarbic respiratory acidosis acute on chronic. Chest x-ray does not show any acute findings. The remainder of her labs are unremarkable otherwise. Will continue to reassess. Patient will require hospitalization. Page is pending to her primary care physician. 04/06/19 22:49 Patient remains very lethargic, minimally opens eyes with sternal rub. I did discuss with the son at the bedside that I think the patient is most appropriate for transition to hospice care is even on BiPAP she appears to be consistently retaining CO2 and appears incapable of coming off BiPAP at any time. The patient is also clearly stated in the past that she does not want intubation or trach. I did discuss with Dr. Hampton who is accepted the patient to [facility]. - Vital Signs Vital signs: Temp Pulse Resp BP Pulse Ox 98.2 F 108 H 27 H 134/54 H 95 04/07/19 01:27 04/07/19 01:27 04/07/19 01:27 04/07/19 01:27 04/07/19 01:27 - Laboratory Result Diagrams: 04/06/19 20:25 04/06/19 20:25 Laboratory results interpreted by me: 04/06/19 04/06/19 04/06/19 20:25 20:25 20:25 WBC 13.3 H MCHC 31.4 L Plt Count 489 H Seg Neuts % (Manual) 89 H Band Neutrophils % 2 L Lymphocytes % (Manual) 5 L Abs Neuts (Manual) 12.1 H VBG pH 7.29 L VBG pCO2 97.6 H* VBG HCO3 45.4 H Chloride 95 L Carbon Dioxide 38 H BUN 35 H Creatinine 0.39 L Glucose 181 H ALT 73 H - Diagnostic Test Radiology reviewed: Image reviewed, Reports reviewed Radiology results interpreted by me: 04/06/19 22:50 Chest x-ray: No acute infiltrate or pneumothorax Critical Care Note - Critical Care Note Total time excluding time spent on procedures (mins): 40 Comments: Critical care time spent obtaining history from patient or surrogate, discussions with consultants, development of treatment plan with patient or surrogate, evaluation of patient's response to treatment, examination of patient, ordering and performing treatments and interventions, ordering and review of laboratory studies, re-evaluation of patient's condition, ordering and review of radiographic studies and review of old charts Discharge - Discharge Clinical Impression: End stage COPD Acute and chronic respiratory failure Qualifiers: Respiratory failure complication: hypoxia and hypercapnia Qualified Code(s): J96.21 - Acute and chronic respiratory failure with hypoxia Altered mental status Qualifiers: Altered mental status type: stupor Qualified Code(s): R40.1 - Stupor Condition: Fair Disposition: ADMITTED INPATIENT Admitting Provider: Janice Unit Admitted: [facility]
[2019-04-06 20:43] LABS: VENOUS BLOOD BASE EXCESS 13.8 mmol/L; VENOUS BLOOD HCO3 45.4 mmol/L (20-32); VENOUS BLOOD PH 7.29 (7.30-7.42)
[2019-04-06 20:46] LABS: HEMATOCRIT 41.9 % (36.0-47.0); HEMOGLOBIN 13.2 g/dL (12.0-15.5); MEAN CORPUSCULAR HEMOGLOBIN 30.2 pg (27.0-33.4); MEAN CORPUSCULAR HGB CONC 31.4 g/dL (32.0-36.0); MEAN CORPUSCULAR VOLUME 96 fl (80-97); PLATELET COUNT 489 10^3/uL (150-450); RED BLOOD COUNT 4.36 10^6/uL (3.72-5.28); RED CELL DISTRIBUTION WIDTH 13.6 % (11.5-14.0); VENOUS BLOOD PCO2 97.6 mmHg (35-63); WHITE BLOOD COUNT 13.3 10^3/uL (4.0-10.5)
[2019-04-06 21:02] LABS: ALANINE AMINOTRANSFERASE 73 U/L (9-52); ALBUMIN 4.1 g/dL (3.5-5.0); ALKALINE PHOSPHATASE 73 U/L (38-126); ANION GAP 9 (5-19); ASPARTATE AMINO TRANSFERASE 24 U/L (14-36); BILIRUBIN,DIRECT 0.3 mg/dL (0.0-0.4); BILIRUBIN,TOTAL 0.5 mg/dL (0.2-1.3); BLOOD UREA NITROGEN 35 mg/dL (7-20); CALCIUM 9.1 mg/dL (8.4-10.2); CARBON DIOXIDE 38 mmol/L (22-30); CHLORIDE 95 mmol/L (98-107); GLUCOSE 181 mg/dL (75-110); POTASSIUM 4.7 mmol/L (3.6-5.0); SODIUM 141.5 mmol/L (137-145); TOTAL PROTEIN 7.2 g/dL (6.3-8.2)
--- NOTE | 2019-04-06 21:20 | RADIOLOGY REPORT (SQ) ---
EXAM DESCRIPTION: [facility]: XR CHEST 1 VIEW CLINICAL HISTORY: 68 years Female, sob COMPARISON: 03/31/2019 FINDINGS: Lungs are somewhat hyperinflated but clear, with no focal infiltrate, pneumothorax, or pleural effusion. Mediastinum is within normal limits for this positioning. Bony structures are unremarkable. IMPRESSION: No acute pulmonary findings.
[2019-04-06 21:28] LABS: ABSOLUTE LYMPHOCYTES# (MANUAL) 0.7 10^3/uL (0.5-4.7); ABSOLUTE MONOCYTES # (MANUAL) 0.5 10^3/uL (0.1-1.4); ABSOLUTE NEUTROPHILS# (MANUAL) 12.1 10^3/uL (1.7-8.2); BAND NEUTROPHILS % (MANUAL) 2 % (3-5); BASOPHILS % (MANUAL) 0 % (0-2); EOSINOPHILS % (MANUAL) 0 % (0-6); LYMPHOCYTES % (MANUAL) 5 % (13-45); MONOCYTES % (MANUAL) 4 % (3-13); PLATELET CLUMPS PRESENT; SEGMENTED NEUTROPHILS % (MAN) 89 % (42-78); TOTAL CELLS COUNTED 100
[2019-04-06 21:30] LABS: POIKILOCYTOSIS SLIGHT; STOMATOCYTES 2+
[2019-04-06 21:53] LABS: TROPONIN I 0.014 ng/mL
--- NOTE | 2019-04-06 23:49 | EKG REPORT ---
SEVERITY:- ABNORMAL ECG - SINUS TACHYCARDIA SUPRAVENTRICULAR BIGEMINY TRENT, CONSIDER BIATRIAL ABNORMALITIES : Confirmed by: Claudia Foreman MD 06-Apr-2019 23:49:06
[2019-04-07] MEDS ORDERED: IPRATROPIUM/ALBUTEROL 0.5-2.5 MG/3 ML AMPUL NEB PRN (01:24)
[2019-04-07] MEDS ORDERED: PANTOPRAZOLE SODIUM 40 MG VIAL IV ONE (02:00)
[2019-04-07] MEDS: METHYLPREDNISOLONE INJ 125 MG/2 ML SDV IV SCH ×3 (06:01→21:26)
[2019-04-07] MEDS: NORMAL SALINE 1000 ML 1,000 ML IV PRN (06:52)
--- NOTE | 2019-04-07 07:58 | EKG REPORT ---
SEVERITY:- ABNORMAL ECG - SINUS TACHYCARDIA BIATRIAL ABNORMALITIES BORDERLINE LEFT AXIS DEVIATION BORDERLINE R WAVE PROGRESSION, ANTERIOR LEADS BORDERLINE T ABNORMALITIES, ANT-LAT LEADS, UNCHANGED : Confirmed by: Pineda Erickson MD 07-Apr-2019 07:57:04
[2019-04-07] MEDS: ENOXAPARIN SODIUM INJ 40 MG/0.4 ML DISP.SYRIN SUBCUT SCH (09:33)
[2019-04-07] MEDS ORDERED: PANTOPRAZOLE SODIUM 40 MG VIAL IV SCH (10:00)
[2019-04-07] MEDS ORDERED: BENZONATATE 100 MG CAPSULE PO PRN (13:42)
--- NOTE | 2019-04-07 13:42 | PDOC H&P ---
History of Present Illness Admission Date/PCP: 04/06/19 23:02 SUE ANDERSON Patient complains of: Difficulty with breathing History of Present Illness: JERMAIN LIN is a 68 year old female known to my practice who was discharged from the hospital on 04/05/19 after treatment for end stage COPD with exacerbation. She is BiPAP and oxygen dependent but son reported that she is not getting supplemental oxygen while on BiPAP support at home. He decided to bring patient back to the hospital with concern about worsening level of alertness despite use of BiPAP continuously at home except for medication administration and meal time when she use her portable oxygen concentrator. Her initial evaluation in the ED was significant for lethargy and hypercapnia on venous blood gas analysis. Her clinical status did respond to BiPAP therapy but she remain lethargic necessitating her readmission. Her morbidities include Hypercholesterolemia, Hypertension, COPD, Hypothyroidism, GERD, and Osteoarthritis. Patient as per son request and documentation do not want to be intubated. Past Medical History Cardiac Medical History: Reports: Hyperlipidema, Hypertension Pulmonary Medical History: Reports: Chronic Obstructive Pulmonary Disease (COPD) Endocrine Medical History: Reports: Hypothyroidism GI Medical History: Reports: Gastroesophageal Reflux Disease Musculoskeltal Medical History: Reports: Arthritis Psychiatric Medical History: Denies: Depression Hematology: Reports: Anemia Past Surgical History Past Surgical History: Reports: Hysterectomy Social History Lives with: Family Smoking Status: Former Smoker Cigarettes Packs Per Day: 2.5 Number of Years Smokin Last Time Smoked: 2012 Frequency of Alcohol Use: None Hx Recreational Drug Use: No Drugs: None Hx Prescription Drug Abuse: No - Advance Directive Resuscitation Status: Do Not Intubate Family History Family History: Reviewed & Not Pertinent Parental Family History Reviewed: Yes Children Family History Reviewed: Yes Sibling(s) Family History Reviewed.: Yes Medication/Allergy Home Medications: Albuterol Sulfate 4 mg PO TID 03/11/19 Alendronate Sodium [Fosamax 70 mg Tablet] 70 mg PO GALAN@0800 03/11/19 Benzonatate [Tessalon [place] 100 mg Capsule] 100 mg PO TIDP PRN 03/11/19 Bupropion HCl [Wellbutrin 75 mg Tablet] 150 mg PO Q12 03/11/19 Docusate Sodium [Colace 100 mg Capsule] 100 mg PO BID 03/11/19 Gabapentin [Neurontin 300 mg Capsule] 300 mg PO Q8 03/11/19 Guaifenesin [Mucinex Sr 600 mg Tablet.sa] 600 mg PO Q12 03/11/19 Ipratropium/Albuterol Sulfate [Combivent Respimat 4 gm Mdi] 1 puff IH Q6 03/11/19 Ipratropium/Albuterol Sulfate [Duoneb 3 ml Ampul] 3 ml NEB Q6 03/11/19 Isosorbide Mononitrate [Imdur 30 mg Tablet.er] 30 mg PO DAILY 03/11/19 Montelukast Sodium [Singulair 10 mg Tablet] 10 mg PO QPM 03/11/19 Naloxone HCl [Evzio] 2 mg IM .EVERY 3 MIN PRN 03/11/19 [place]-3 Acid Ethyl Esters [Lovaza 1 gm Capsule] 1 gm PO DAILY 03/11/19 Omeprazole 40 mg PO DAILY 03/11/19 Oxycodone HCl [Oxycontin] 20 mg PO Q12 03/11/19 Oxycodone HCl/Acetaminophen [Percocet 7.5-325 mg Tablet] 1 tab PO Q6HP PRN 03/11/19 Tiotropium [place] [Spiriva Respimat] 2 puff IH DAILY 03/11/19 Aspirin [Ecotrin] 81 mg PO DAILY 03/28/19 Acetazolamide [Diamox 250 mg Tab] 250 mg PO Q12 #60 tablet 04/05/19 Prednisone [Deltasone 5 mg Tablet] 5 mg PO ASDIR PRN #43 tablet 04/05/19 Albuterol Sulfate [Proair HFA Inhalation Aerosol 8.5 gm MDI] 2 puff IH Q6 04/07/19 Fluticasone/Vilanterol [Breo 200-25 Mcg Ellipta 14 Dose/Dpi] 1 inh IH QAM 04/07/19 Nystatin [Mycostatin 500,000 Unit/5 ml Susp Udcup] 5 ml PO Q6 04/07/19 Theophylline Anhydrous [[place]-Dur 100 mg Tab.sr] 100 mg PO DAILY 04/07/19 Allergies/Adverse Reactions: Sulfa (Sulfonamide Antibiotics) Allergy (Verified 05/03/13 17:10) hives/swelling Review of Systems Constitutional: PRESENT: weakness Eyes: ABSENT: visual disturbances Ears: ABSENT: hearing changes Nose, Mouth, and Throat: ABSENT: as per HPI, headache(s), mouth pain, sore throat, vertigo, other Cardiovascular: PRESENT: dyspnea on exertion. ABSENT: as per HPI, chest pain, edema, orthropnea, palpitations, other Respiratory: PRESENT: dyspnea. ABSENT: as per HPI, cough, hemoptysis, sputum, other Gastrointestinal: ABSENT: abdominal pain, constipation, diarrhea, hematemesis, hematochezia, nausea, vomiting Genitourinary: ABSENT: dysuria, hematuria Musculoskeletal: PRESENT: back pain - and multiple joints, chronic duration on opiate therapy.. ABSENT: joint swelling Integumentary: ABSENT: rash, wounds Neurological: ABSENT: abnormal gait, abnormal speech, confusion, dizziness, fo pro weakness, syncope Psychiatric: PRESENT: anxiety, depression Endocrine: ABSENT: cold intolerance, heat intolerance, polydipsia, polyuria Hematologic/Lymphatic: ABSENT: easy bleeding, easy bruising, lymphadenopathy Allergic/Immunologic: ABSENT: seasonal rhinorrhea Physical Exam Vital Signs: Temp Pulse Resp BP Pulse Ox 99.0 F 108 H 26 H 133/65 H 97 04/07/19 11:47 04/07/19 11:47 04/07/19 11:55 04/07/19 11:47 04/07/19 11:55 Intake & Output 04/06/19 04/07/19 04/08/19 06:59 06:59 06:59 Output Total 90 Balance -90 Weight 56.4 kg General appearance: PRESENT: mild distress - on BiPAP at the time of my bedside evaluation she is awake, oriented and able to contribute to her medical history of present illness. Head exam: PRESENT: atraumatic, normocephalic Eye exam: PRESENT: conjunctiva pink, EOMI, PERRLA. ABSENT: scleral icterus Ear exam: PRESENT: normal external ear exam Mouth exam: PRESENT: moist Neck exam: PRESENT: full ROM. ABSENT: carotid bruit, JVD, lymphadenopathy, thyromegaly Respiratory exam: PRESENT: decreased breath sounds, prolonged expiratory phas, rhonchi, wheezes Cardiovascular exam: PRESENT: +S1, +S2, tachycardia. ABSENT: diastolic murmur, rubs, systolic murmur Vascular exam: ABSENT: pallor GI/Abdominal exam: PRESENT: normal bowel sounds, soft. ABSENT: distended, guarding, mass, organolmegaly, rebound, tenderness Rectal exam: PRESENT: deferred Extremities exam: ABSENT: pedal edema Musculoskeletal exam: PRESENT: deformity - related to multiple joints involvement with arthritis Neurological exam: PRESENT: alert, awake, oriented to person, oriented to place, oriented to time, oriented to situation, CN II-XII grossly intact. ABSENT: motor sensory deficit Psychiatric exam: PRESENT: appropriate affect, normal mood. ABSENT: homicidal ideation, suicidal ideation Skin exam: PRESENT: dry, warm Results Laboratory Results: 04/06/19 20:25 04/06/19 20:25 04/06/19 04/06/19 04/06/19 20:25 20:25 20:25 WBC 13.3 H RBC 4.36 Hgb 13.2 Hct 41.9 MCV 96 MCH 30.2 MCHC 31.4 L RDW 13.6 Plt Count 489 H Seg Neutrophils % Not Reportable Lymphocytes % Not Reportable Monocytes % Not Reportable Eosinophils % Not Reportable Basophils % Not Reportable Absolute Neutrophils Not Reportable Absolute Lymphocytes Not Reportable Absolute Monocytes Not Reportable Absolute Eosinophils Not Reportable Absolute Basophils Not Reportable VBG pH VBG pCO2 VBG HCO3 VBG Base Excess Sodium 141.5 Potassium 4.7 Chloride 95 L Carbon Dioxide 38 H Anion Gap 9 BUN 35 H Creatinine 0.39 L Est GFR ( Amer) > 60 Est GFR (Non-Af Amer) > 60 Glucose 181 H Lactic Acid 1.7 Calcium 9.1 Total Bilirubin 0.5 AST 24 ALT 73 H Alkaline Phosphatase 73 Total Protein 7.2 Albumin 4.1 04/06/19 20:25 WBC RBC Hgb Hct MCV MCH MCHC RDW Plt Count Seg Neutrophils % Lymphocytes % Monocytes % Eosinophils % Basophils % Absolute Neutrophils Absolute Lymphocytes Absolute Monocytes Absolute Eosinophils Absolute Basophils VBG pH 7.29 L VBG pCO2 97.6 H* VBG HCO3 45.4 H VBG Base Excess 13.8 Sodium Potassium Chloride Carbon Dioxide Anion Gap BUN Creatinine Est GFR ( Amer) Est GFR (Non-Af Amer) Glucose Lactic Acid Calcium Total Bilirubin AST ALT Alkaline Phosphatase Total Protein Albumin 04/06/19 20:25 Troponin I 0.014 NT-Pro-B Natriuret Pep 259 Impressions: Chest X-Ray 04/06/19 20:23 IMPRESSION: No acute pulmonary findings. Assessment & Plan - Diagnosis (1) Acute and chronic respiratory failure Qualifiers: Respiratory failure complication: hypoxia and hypercapnia Qualified Code(s): J96.21 - Acute and chronic respiratory failure with hypoxia; J96.22 - Acute and chronic respiratory failure with hypercapnia Is this a current diagnosis for this admission?: Yes Plan: See admitting attending physician orders for details on care plan. (2) Chronic respiratory failure with hypoxia and hypercapnia Is this a current diagnosis for this admission?: Yes Plan: See admitting attending physician orders for details on care plan. (3) Hypoxemia requiring supplemental oxygen Is this a current diagnosis for this admission?: Yes Plan: See admitting attending physician orders for details on care plan. (4) COPD with acute exacerbation Is this a current diagnosis for this admission?: Yes Plan: See admitting attending physician orders for details on care plan. (5) HTN (hypertension) Qualifiers: Hypertension type: essential hypertension Qualified Code(s): I10 - Essential (primary) hypertension Is this a current diagnosis for this admission?: Yes Plan: See admitting attending physician orders for details on care plan. (6) HLD (hyperlipidemia) Qualifiers: Hyperlipidemia type: unspecified Qualified Code(s): E78.5 - Hyperlipidemia, unspecified Is this a current diagnosis for this admission?: Yes Plan: See admitting attending physician orders for details on care plan. (7) GERD (gastroesophageal reflux disease) Qualifiers: Esophagitis presence: without esophagitis Qualified Code(s): K21.9 - Gastro-esophageal reflux disease without esophagitis Is this a current diagnosis for this admission?: Yes Plan: See admitting attending physician orders for details on care plan. (8) Chronic pain disorder Is this a current diagnosis for this admission?: Yes Plan: See admitting attending physician orders for details on care plan. (9) Chronically on opiate therapy Is this a current diagnosis for this admission?: Yes Plan: See admitting attending physician orders for details on care plan. - Time Time Spent: 50 to 70 Minutes Medications reviewed and adjusted accordingly: Yes Anticipated discharge: Home with Homehealth Within: Other - Inpatient Certification Based on my medical assessment, after consideration of the patient's comorbidities, presenting symptoms, or acuity I expect that the services needed warrant INPATIENT care.: Yes I certify that my determination is in accordance with my understanding of Medicare's requirements for reasonable and necessary INPATIENT services [42 CFR 412.3e].: Yes Medical Necessity: Significant Comorbidiites Make Outpatient Treatment Too Risky, Need Close Monitoring Due to Risk of Patient Decompensation, Need For IV Fluids, Need For Continuous Telemetry Monitoring, Need for Nebulizer Therapy and Monitoring of Response, Need for Pain Control, Risk of Complication if Not Cared For in Hospital, Risk of Diagnosis Which Will Require Inpatient Eval/Care/Monitoring Post Hospital Care: D/C Vest Maker Documentation - Plan Summary Plan Summary: See admitting attending physician orders for details on care plan.
[2019-04-07] MEDS ORDERED: NALOXONE HCL 2 MG IM SCH (13:45)
[2019-04-07] MEDS: DOCUSATE SODIUM 100 MG CAPSULE PO SCH (17:02)
[2019-04-07] MEDS: MONTELUKAST SODIUM 10 MG TABLET PO SCH (17:03)
[2019-04-07] MEDS: GABAPENTIN 300 MG CAPSULE PO SCH ×2 (17:03→21:26)
[2019-04-07] MEDS: ACETAZOLAMIDE 250 MG TABLET PO SCH (21:26)
[2019-04-07] MEDS: BUPROPION HCL 75 MG TABLET PO SCH (21:26)
[2019-04-07] MEDS: GUAIFENESIN 600 MG TABLET.SA PO SCH (21:26)
[2019-04-07] MEDS: LEVALBUTEROL HCL NEB 1.25 MG/3 ML AMPUL NEB SCH (21:32)
[2019-04-08] MEDS: LEVALBUTEROL HCL NEB 1.25 MG/3 ML AMPUL NEB SCH ×4 (02:23→19:50)
[2019-04-08] MEDS: NORMAL SALINE 1000 ML 1,000 ML IV PRN ×2 (03:25→23:01)
[2019-04-08] MEDS: METHYLPREDNISOLONE INJ 125 MG/2 ML SDV IV SCH ×3 (05:12→21:22)
[2019-04-08] MEDS: GABAPENTIN 300 MG CAPSULE PO SCH ×3 (05:12→21:21)
[2019-04-08] MEDS: PANTOPRAZOLE SODIUM 40 MG TABLET.DR PO SCH (05:12)
[2019-04-08 05:14] LABS: HEMATOCRIT 37.5 % (36.0-47.0); HEMOGLOBIN 11.7 g/dL (12.0-15.5); MEAN CORPUSCULAR HEMOGLOBIN 30.6 pg (27.0-33.4); MEAN CORPUSCULAR HGB CONC 31.3 g/dL (32.0-36.0); MEAN CORPUSCULAR VOLUME 98 fl (80-97); PLATELET COUNT 368 10^3/uL (150-450); RED BLOOD COUNT 3.84 10^6/uL (3.72-5.28); RED CELL DISTRIBUTION WIDTH 13.6 % (11.5-14.0); WHITE BLOOD COUNT 8.7 10^3/uL (4.0-10.5)
[2019-04-08 05:20] LABS: ALANINE AMINOTRANSFERASE 42 U/L (9-52); ALBUMIN 3.3 g/dL (3.5-5.0); ALKALINE PHOSPHATASE 51 U/L (38-126); ASPARTATE AMINO TRANSFERASE 17 U/L (14-36); BILIRUBIN,DIRECT 0.4 mg/dL (0.0-0.4); BILIRUBIN,TOTAL 0.4 mg/dL (0.2-1.3); BLOOD UREA NITROGEN 26 mg/dL (7-20); CALCIUM 7.7 mg/dL (8.4-10.2); CHLORIDE 94 mmol/L (98-107); GLUCOSE 271 mg/dL (75-110); POTASSIUM 3.9 mmol/L (3.6-5.0); TOTAL PROTEIN 6.1 g/dL (6.3-8.2)
[2019-04-08 05:41] LABS: SODIUM 142.5 mmol/L (137-145)
[2019-04-08 05:50] LABS: ABSOLUTE LYMPHOCYTES# (MANUAL) 0.3 10^3/uL (0.5-4.7); ABSOLUTE NEUTROPHILS# (MANUAL) 8.4 10^3/uL (1.7-8.2); BAND NEUTROPHILS % (MANUAL) 1 % (3-5); BASOPHILS % (MANUAL) 0 % (0-2); EOSINOPHILS % (MANUAL) 0 % (0-6); LYMPHOCYTES % (MANUAL) 4 % (13-45); MONOCYTES % (MANUAL) 0 % (3-13); SEGMENTED NEUTROPHILS % (MAN) 95 % (42-78); TOTAL CELLS COUNTED 100
[2019-04-08 05:51] LABS: PLATELET COMMENT ADEQUATE; STOMATOCYTES 1+
[2019-04-08 05:55] LABS: ANION GAP 7 (5-19); CARBON DIOXIDE 42 mmol/L (22-30)
[2019-04-08 06:08] LABS: ARTERIAL BLOOD HCO3 43.1 mmol/L (20-24); ARTERIAL BLOOD PH 7.35 (7.35-7.45); ARTERIAL BLOOD PO2 101.1 mmHg (80-100); ARTERIAL BLOOD TOTAL CO2 45.5 mmol/L (21-25)
[2019-04-08 06:11] LABS: ARTERIAL BLOOD FIO2 50%; ARTERIAL BLOOD PCO2 79.8 mmHg (35-45)
[2019-04-08] MEDS ORDERED: (PENDING PHARMACY ID) (Tiotropium Bromide [Spiriva Respimat] 2 PUFF) IH SCH (10:00)
[2019-04-08] MEDS: ACETAZOLAMIDE 250 MG TABLET PO SCH ×2 (11:40→21:21)
[2019-04-08] MEDS: OMEGA-3 ACID ETHYL ESTERS 1 GM CAPSULE PO SCH (11:40)
[2019-04-08] MEDS: GUAIFENESIN 600 MG TABLET.SA PO SCH ×2 (11:40→21:21)
[2019-04-08] MEDS: ISOSORBIDE MONONITRATE 30 MG TAB.ER.24H PO SCH (11:40)
[2019-04-08] MEDS: ENOXAPARIN SODIUM INJ 40 MG/0.4 ML DISP.SYRIN SUBCUT SCH (11:41)
[2019-04-08] MEDS: DOCUSATE SODIUM 100 MG CAPSULE PO SCH ×2 (11:41→17:18)
[2019-04-08] MEDS: ASPIRIN 81 MG TABLET, ENT COATED PO SCH (11:41)
[2019-04-08] MEDS: BUPROPION HCL 75 MG TABLET PO SCH ×2 (11:44→21:22)
[2019-04-08] MEDS: THEOPHYLLINE ANHYDROUS 100 MG TAB.SR.12H PO SCH (11:44)
[2019-04-08] MEDS: MONTELUKAST SODIUM 10 MG TABLET PO SCH (17:18)
--- NOTE | 2019-04-08 19:23 | PDOC PROGRESS REPORT ---
Subjective Progress Note for:: 04/08/19 Subjective:: Patient changed her code status to full code since my last clinical evaluation. She remain on BiPAP support with supplemental oxygen. No chest pain. No nausea, vomiting or abdominal pain. Reason For Visit: END STAGE COPD Physical Exam Vital Signs: Temp Pulse Resp BP Pulse Ox 97.5 F 111 H 28 H 107/44 L 99 04/08/19 03:25 04/08/19 03:25 04/08/19 03:25 04/08/19 03:25 04/08/19 03:25 Intake & Output 04/07/19 04/08/19 04/09/19 06:59 06:59 06:59 Intake Total 1210 Output Total 90 800 Balance -90 410 Weight 56.4 kg 58.4 kg General appearance: PRESENT: mild distress - remainon BiPAP support and supplemental oxygen. Head exam: PRESENT: atraumatic, normocephalic Eye exam: PRESENT: conjunctiva pink. ABSENT: scleral icterus Ear exam: PRESENT: normal external ear exam Mouth exam: PRESENT: moist Respiratory exam: PRESENT: decreased breath sounds - at lung bases, rhonchi - minimal expiratory phase Cardiovascular exam: PRESENT: RRR. ABSENT: diastolic murmur, rubs, systolic murmur Vascular exam: ABSENT: pallor GI/Abdominal exam: PRESENT: normal bowel sounds, soft. ABSENT: distended, guarding, mass, organolmegaly, rebound, tenderness Extremities exam: ABSENT: pedal edema Neurological exam: PRESENT: alert, awake, oriented to person, oriented to place, oriented to time, oriented to situation, CN II-XII grossly intact. ABSENT: motor sensory deficit Psychiatric exam: PRESENT: appropriate affect, normal mood. ABSENT: homicidal ideation, suicidal ideation Skin exam: PRESENT: dry, warm Results Laboratory Results: 04/08/19 04:05 04/08/19 04:05 04/08/19 04/08/19 04/08/19 04:05 04:05 05:50 WBC 8.7 RBC 3.84 Hgb 11.7 L Hct 37.5 MCV 98 H MCH 30.6 MCHC 31.3 L RDW 13.6 Plt Count 368 Seg Neutrophils % Not Reportable Lymphocytes % Not Reportable Monocytes % Not Reportable Eosinophils % Not Reportable Basophils % Not Reportable Absolute Neutrophils Not Reportable Absolute Lymphocytes Not Reportable Absolute Monocytes Not Reportable Absolute Eosinophils Not Reportable Absolute Basophils Not Reportable Carbonic Acid 2.40 H HCO3/H2CO3 Ratio 17:1 ABG pH 7.35 ABG pCO2 79.8 H* ABG pO2 101.1 H ABG HCO3 43.1 H ABG O2 Saturation 97.0 ABG Base Excess 14.0 FiO2 50% Sodium 142.5 Potassium 3.9 Chloride 94 L Carbon Dioxide 42 H* Anion Gap 7 BUN 26 H Creatinine 0.55 Est GFR ( Amer) > 60 Est GFR (Non-Af Amer) > 60 Glucose 271 H Calcium 7.7 L Total Bilirubin 0.4 AST 17 ALT 42 Alkaline Phosphatase 51 Total Protein 6.1 L Albumin 3.3 L 04/06/19 20:25 Troponin I 0.014 NT-Pro-B Natriuret Pep 259 Impressions: Chest X-Ray 04/06/19 20:23 IMPRESSION: No acute pulmonary findings. Assessment & Plan - Diagnosis (1) Acute and chronic respiratory failure Qualifiers: Respiratory failure complication: hypoxia and hypercapnia Qualified Code(s): J96.21 - Acute and chronic respiratory failure with hypoxia; J96.22 - Acute and chronic respiratory failure with hypercapnia Is this a current diagnosis for this admission?: Yes (2) Chronic respiratory failure with hypoxia and hypercapnia Is this a current diagnosis for this admission?: Yes (3) Hypoxemia requiring supplemental oxygen Is this a current diagnosis for this admission?: Yes (4) COPD with acute exacerbation Is this a current diagnosis for this admission?: Yes (5) HTN (hypertension) Qualifiers: Hypertension type: essential hypertension Qualified Code(s): I10 - Essentia l (primary) hypertension Is this a current diagnosis for this admission?: Yes (6) HLD (hyperlipidemia) Qualifiers: Hyperlipidemia type: unspecified Qualified Code(s): E78.5 - Hyperlipidemia, unspecified Is this a current diagnosis for this admission?: Yes (7) GERD (gastroesophageal reflux disease) Qualifiers: Esophagitis presence: without esophagitis Qualified Code(s): K21.9 - Gastro-esophageal reflux disease without esophagitis Is this a current diagnosis for this admission?: Yes (8) Chronic pain disorder Is this a current diagnosis for this admission?: Yes (9) Chronically on opiate therapy Is this a current diagnosis for this admission?: Yes - Time Time Spent with patient: 25-34 minutes Medications reviewed and adjusted accordingly: Yes Anticipated discharge: Home with Homehealth Within: Other - Inpatient Certification Based on my medical assessment, after consideration of the patient's comorbidities, presenting symptoms, or acuity I expect that the services needed warrant INPATIENT care.: Yes I certify that my determination is in accordance with my understanding of Medicare's requirements for reasonable and necessary INPATIENT services [42 CFR 412.3e].: Yes Medical Necessity: Significant Comorbidiites Make Outpatient Treatment Too Risky, Need Close Monitoring Due to Risk of Patient Decompensation, Need For IV Fluids, Need For Continuous Telemetry Monitoring, Need for Nebulizer Therapy and Monitoring of Response, Risk of Complication if Not Cared For in Hospital, Risk of Diagnosis Which Will Require Inpatient Eval/Care/Monitoring Post Hospital Care: D/C Parts Control Clerk Documentation - Plan Summary Plan Summary: Decrease IV Solu Medrol to 60 mg q 8hours. Continue all other current medication management. I discussed with patient and son at bedside if he PCO2 continue to improve, she will be discharged home in next 24-48 hours. Obtain ABG in AM.
[2019-04-08] MEDS: ACETAMINOPHEN 325 MG TABLET PO PRN (21:22)
[2019-04-09] MEDS: LEVALBUTEROL HCL NEB 1.25 MG/3 ML AMPUL NEB SCH ×4 (01:55→19:52)
[2019-04-09] MEDS: PANTOPRAZOLE SODIUM 40 MG TABLET.DR PO SCH (05:10)
[2019-04-09] MEDS: GABAPENTIN 300 MG CAPSULE PO SCH ×3 (05:10→23:12)
[2019-04-09] MEDS: METHYLPREDNISOLONE INJ 125 MG/2 ML SDV IV SCH (05:10)
[2019-04-09 06:30] LABS: ARTERIAL BLOOD BASE EXCESS 11.8 mmol/L; ARTERIAL BLOOD FIO2 50%; ARTERIAL BLOOD H2CO3 2.62 mmol/L (1.05-1.35); ARTERIAL BLOOD HCO3 41.4 mmol/L (20-24); ARTERIAL BLOOD O2 SATURATION 95.4 % (94-98); ARTERIAL BLOOD PO2 89.8 mmHg (80-100); ARTERIAL BLOOD TOTAL CO2 44.1 mmol/L (21-25)
[2019-04-09 06:32] LABS: ARTERIAL BLOOD PCO2 86.9 mmHg (35-45)
[2019-04-09] MEDS: ISOSORBIDE MONONITRATE 30 MG TAB.ER.24H PO SCH (09:38)
[2019-04-09] MEDS: GUAIFENESIN 600 MG TABLET.SA PO SCH ×2 (09:38→23:12)
[2019-04-09] MEDS: ASPIRIN 81 MG TABLET, ENT COATED PO SCH (09:38)
[2019-04-09] MEDS: DOCUSATE SODIUM 100 MG CAPSULE PO SCH ×2 (09:38→17:18)
[2019-04-09] MEDS: OMEGA-3 ACID ETHYL ESTERS 1 GM CAPSULE PO SCH (09:38)
[2019-04-09] MEDS: THEOPHYLLINE ANHYDROUS 100 MG TAB.SR.12H PO SCH (09:38)
[2019-04-09] MEDS: ENOXAPARIN SODIUM INJ 40 MG/0.4 ML DISP.SYRIN SUBCUT SCH (09:38)
[2019-04-09] MEDS: ACETAZOLAMIDE 500 MG CAPSULE.SA PO SCH ×3 (09:39→23:13)
[2019-04-09] MEDS: BUPROPION HCL 75 MG TABLET PO SCH ×2 (09:39→23:14)
[2019-04-09] MEDS ORDERED: METHYLPREDNISOLONE INJ 125 MG/2 ML SDV IV SCH (14:00)
[2019-04-09] MEDS: METHYLPREDNISOLONE INJ 40 MG/1 ML SDV IV SCH ×2 (14:00→23:13)
[2019-04-09] MEDS: ACETAMINOPHEN 325 MG TABLET PO PRN (14:00)
[2019-04-09] MEDS: MONTELUKAST SODIUM 10 MG TABLET PO SCH (17:18)
--- NOTE | 2019-04-09 20:51 | PDOC PROGRESS REPORT ---
Subjective Progress Note for:: 04/09/19 Subjective:: Patient remain on BiPAP support with supplemental oxygen. No chest pain. No nausea, vomiting or abdominal pain. Reason For Visit: END STAGE COPD Physical Exam Vital Signs: Temp Pulse Resp BP Pulse Ox 97.6 F 98 22 H 125/61 98 04/09/19 03:34 04/09/19 03:34 04/09/19 03:46 04/09/19 03:34 04/09/19 03:34 Intake & Output 04/08/19 04/09/19 04/10/19 06:59 06:59 06:59 Intake Total 1210 1570 Output Total 800 1730 Balance 410 -160 Weight 58.4 kg 58.5 kg Physical Exam: General appearance: PRESENT: mild distress - remain on BiPAP support and supplemental oxygen. Head exam: PRESENT: atraumatic, normocephalic Eye exam: PRESENT: conjunctiva pink. ABSENT: scleral icterus Ear exam: PRESENT: normal external ear exam Mouth exam: PRESENT: moist Respiratory exam: PRESENT: decreased breath sounds - at lung bases Cardiovascular exam: PRESENT: RRR. ABSENT: diastolic murmur, rubs, systolic murmur Vascular exam: ABSENT: pallor GI/Abdominal exam: PRESENT: normal bowel sounds, soft. ABSENT: distended, guarding, mass, organomegaly, rebound, tenderness Extremities exam: ABSENT: pedal edema Neurological exam: PRESENT: alert, awake, oriented to person, oriented to place, oriented to time, oriented to situation, CN II-XII grossly intact. ABSENT: motor sensory deficit Psychiatric exam: PRESENT: appropriate affect, normal mood. ABSENT: homicidal ideation, suicidal ideation Skin exam: PRESENT: dry, warm Results Laboratory Results: 04/08/19 04:05 04/08/19 04:05 04/09/19 06:14 Carbonic Acid 2.62 H HCO3/H2CO3 Ratio 15:1 ABG pH 7.30 L ABG pCO2 86.9 H* ABG pO2 89.8 ABG HCO3 41.4 H ABG O2 Saturation 95.4 ABG Base Excess 11.8 FiO2 50% 04/06/19 20:25 Troponin I 0.014 NT-Pro-B Natriuret Pep 259 Impressions: Chest X-Ray 04/06/19 20:23 IMPRESSION: No acute pulmonary findings. Assessment & Plan - Diagnosis (1) Acute and chronic respiratory failure Qualifiers: Respiratory failure complication: hypoxia and hypercapnia Qualified Code(s): J96.21 - Acute and chronic respiratory failure with hypoxia; J96.22 - Acute and chronic respiratory failure with hypercapnia Is this a current diagnosis for this admission?: Yes (2) Chronic respiratory failure with hypoxia and hypercapnia Is this a current diagnosis for this admission?: Yes (3) Hypoxemia requiring supplemental oxygen Is this a current diagnosis for this admission?: Yes (4) COPD with acute exacerbation Is this a current diagnosis for this admission?: Yes (5) HTN (hypertension) Qualifiers: Hypertension type: essential hypertension Qualified Code(s): I10 - Essential (primary) hypertension Is this a current diagnosis for this admission?: Yes (6) HLD (hyperlipidemia) Qualifiers: Hyperlipidemia type: unspecified Qualified Code(s): E78.5 - Hyperlipidemia, unspecified Is this a current diagnosis for this admission?: Yes (7) GERD (gastroesophageal reflux disease) Qualifiers: Esophagitis presence: without esophagitis Qualified Code(s): K21.9 - Gastro-esophageal reflux disease without esophagitis Is this a current diagnosis for this admission?: Yes (8) Chronic pain disorder Is this a current diagnosis for this admission?: Yes (9) Chronically on opiate therapy Is this a current diagnosis for this admission?: Yes - Time Time Spent with patient: 25-34 minutes Medications reviewed and adjusted accordingly: Yes Anticipated discharge: Home with Homehealth Within: Other - Inpatient Certification Based on my medical assessment, after consideration of the patient's comorbidities, presenting symptoms, or acuity I expect that the services needed warrant INPATIENT care.: Yes I certify that my determination is in accordance with my understanding of Medicare's requirements for reasonable and necessary INPATIENT services [42 CFR 412.3e].: Yes Medical Necessity: Significant Comorbidiites Make Outpatient Treatment Too Risk y, Need Close Monitoring Due to Risk of Patient Decompensation, Need For IV Fluids, Need For Continuous Telemetry Monitoring, Need for Nebulizer Therapy and Monitoring of Response, Risk of Complication if Not Cared For in Hospital, Risk of Diagnosis Which Will Require Inpatient Eval/Care/Monitoring Post Hospital Care: D/C Teasel Setter Documentation - Plan Summary Plan Summary: Patient is chronic retainer of CO2 and probably adapted to her present status. She remain lucid and contributory to her medical condition. I discussed case wit h patient and son regarding BiPAP setting at home. I issued prescription order to her DME for settings on the BiPAP device with supplemental oxygen. I will decrease her IV Solu Medrol dosage to 40 mg q 8hours with plan to transition to oral tapering regimen upon discharge. I will increase her Acetazolamide dosing to 500 mg po q 8 hours. Continue all other current medication management..
[2019-04-10] MEDS: LEVALBUTEROL HCL NEB 1.25 MG/3 ML AMPUL NEB SCH ×2 (02:14→08:13)
[2019-04-10] MEDS: ACETAMINOPHEN 325 MG TABLET PO PRN ×2 (05:40→11:12)
[2019-04-10] MEDS: METHYLPREDNISOLONE INJ 40 MG/1 ML SDV IV SCH (05:41)
[2019-04-10] MEDS: PANTOPRAZOLE SODIUM 40 MG TABLET.DR PO SCH (05:41)
[2019-04-10] MEDS: ACETAZOLAMIDE 500 MG CAPSULE.SA PO SCH (05:41)
[2019-04-10] MEDS: GABAPENTIN 300 MG CAPSULE PO SCH (05:41)
[2019-04-10] MEDS: ISOSORBIDE MONONITRATE 30 MG TAB.ER.24H PO SCH (09:31)
[2019-04-10] MEDS: DOCUSATE SODIUM 100 MG CAPSULE PO SCH (09:31)
[2019-04-10] MEDS: GUAIFENESIN 600 MG TABLET.SA PO SCH (09:31)
[2019-04-10] MEDS: ASPIRIN 81 MG TABLET, ENT COATED PO SCH (09:31)
[2019-04-10] MEDS: BUPROPION HCL 75 MG TABLET PO SCH (09:31)
[2019-04-10] MEDS: OMEGA-3 ACID ETHYL ESTERS 1 GM CAPSULE PO SCH (09:31)
[2019-04-10] MEDS: ENOXAPARIN SODIUM INJ 40 MG/0.4 ML DISP.SYRIN SUBCUT SCH (09:31)
[2019-04-10] MEDS: THEOPHYLLINE ANHYDROUS 100 MG TAB.SR.12H PO SCH (09:31)
[2019-04-10] MEDS ORDERED: TIOTROPIUM BROMIDE DPI 5 CAP/KIT (18 MCG/CAP) IH SCH (12:00)
[2019-04-10 12:56] VITALS: BP 118/54
[2019-04-13] MEDS ORDERED: (PENDING PHARMACY ID) (Alendronate Sodium [Fosamax 70 Mg Tablet] 70 MG) PO SCH (08:00)
--- NOTE | 2019-04-14 20:08 | PDOC DISCHARGE SUMMARY ---
General - Admit/Disc Date/PCP Admission Date/Primary Care Provider: 04/06/19 23:02 SUE ANDERSON Discharge Date: 04/10/19 - Discharge Diagnosis (1) Acute and chronic respiratory failure Is this a current diagnosis for this admission?: Yes (2) Chronic respiratory failure with hypoxia and hypercapnia Is this a current diagnosis for this admission?: Yes (3) Hypoxemia requiring supplemental oxygen Is this a current diagnosis for this admission?: Yes (4) COPD with acute exacerbation Is this a current diagnosis for this admission?: Yes (5) HTN (hypertension) Is this a current diagnosis for this admission?: Yes (6) HLD (hyperlipidemia) Is this a current diagnosis for this admission?: Yes (7) GERD (gastroesophageal reflux disease) Is this a current diagnosis for this admission?: Yes (8) Chronic pain disorder Is this a current diagnosis for this admission?: Yes (9) Chronically on opiate therapy Is this a current diagnosis for this admission?: Yes - Additional Information Resuscitation Status: Do Not Intubate Prescriptions: Acetazolamide [Diamox Sequel 500 mg] 500 mg PO Q8 #90 capsule.sa Theophylline Anhydrous [[place]ino-Dur 100 mg Tab.sr] 100 mg PO DAILY #30 tab.sr.12h Home Medications: Alendronate Sodium [Fosamax 70 mg Tablet] 70 mg PO GALAN@0800 03/11/19 Benzonatate [Tessalon Perle 100 mg Capsule] 100 mg PO TIDP PRN 03/11/19 Bupropion HCl [Wellbutrin 75 mg Tablet] 150 mg PO Q12 03/11/19 Docusate Sodium [Colace 100 mg Capsule] 100 mg PO BID 03/11/19 Gabapentin [Neurontin 300 mg Capsule] 300 mg PO Q8 03/11/19 Guaifenesin [Mucinex Sr 600 mg Tablet.sa] 600 mg PO Q12 03/11/19 Ipratropium/Albuterol Sulfate [Combivent Respimat 4 gm Mdi] 1 puff IH Q6 03/11/19 Ipratropium/Albuterol Sulfate [Duoneb 3 ml Ampul] 3 ml NEB Q6 03/11/19 Isosorbide Mononitrate [Imdur 30 mg Tablet.er] 30 mg PO DAILY 03/11/19 Montelukast Sodium [Singulair 10 mg Tablet] 10 mg PO QPM 03/11/19 Naloxone HCl [Evzio] 2 mg IM .EVERY 3 MIN PRN 03/11/19 [place]-3 Acid Ethyl Esters [Lovaza 1 gm Capsule] 1 gm PO DAILY 03/11/19 Omeprazole 40 mg PO DAILY 03/11/19 Oxycodone HCl [Oxycontin] 20 mg PO Q12 03/11/19 Oxycodone HCl/Acetaminophen [Percocet 7.5-325 mg Tablet] 1 tab PO Q6HP PRN 03/11/19 Tiotropium [place] [Spiriva Respimat] 2 puff IH DAILY 03/11/19 Aspirin [Ecotrin] 81 mg PO DAILY 03/28/19 Prednisone [Deltasone 5 mg Tablet] 5 mg PO ASDIR PRN #43 tablet 04/05/19 Fluticasone/Vilanterol [Breo 200-25 Mcg Ellipta 14 Dose/Dpi] 1 inh IH QAM 04/07/19 Nystatin [Mycostatin 500,000 Unit/5 ml Susp Udcup] 5 ml PO Q6 04/07/19 Acetazolamide [Diamox Sequel 500 mg] 500 mg PO Q8 #90 capsule.sa 04/10/19 Theophylline Anhydrous [Albino-Dur 100 mg Tab.sr] 100 mg PO DAILY #30 tab.sr.12h 04/10/19 History of Present Illness Patient complains of: Worsening level of alertness History of Present Illness: JERMAIN LIN is a 68 year old female known to my practice who was discharged from the hospital on 04/05/19 after treatment for end stage COPD with exacerbation. She is BiPAP and oxygen dependent but son reported that she is not getting supplemental oxygen while on BiPAP support at home. He decided to bring patient back to the hospital with concern about worsening level of alertness despite use of BiPAP continuously at home except for medication administration and meal time when she use her portable oxygen concentrator. Her initial evaluation in the ED was significant for lethargy and hypercapnia on venous bloo d gas analysis. Her clinical status did respond to BiPAP therapy but she remain lethargic necessitating her readmission. Her morbidities include Hyperlipidemia, Hypertension, end stage COPD, Hypothyroidism, GERD, and Osteoarthritis. Patient as per son request and documentation do not want to be intubated. Hospital Course Hospital Course: She was readmitted for acute on chronic respiratory failure with hypoxemia and hypercarpnia and altered mental status. She responded to BiPAP support with oxygenation. She was managed with IV Solu Medrol and rapid taper approach. She remain lucid over last 48 hours. Her DME was prescribed adjustment to her BiPAP support and need for supplemental oxygen while in use. Patient changed her resuscitation status from DNI to fulll code during this hospitalization. She is agreeable to discharge home today. Patient and son continue to decline [employer] services. Physical Exam Vital Signs: Temp Pulse Resp BP Pulse Ox 98.3 F 106 H 30 H 123/53 L 94 04/10/19 03:12 04/10/19 03:12 04/10/19 04:32 04/10/19 03:12 04/10/19 04:32 Intake & Output 04/09/19 04/10/19 04/11/19 06:59 06:59 06:59 Intake Total 1570 1148 Output Total 1730 400 Balance -160 748 Weight 58.5 kg 58.9 kg Physical Exam: General appearance: PRESENT: mild distress - remain on BiPAP support and supplemental oxygen. Head exam: PRESENT: atraumatic, normocephalic Eye exam: PRESENT: conjunctiva pink. ABSENT: pallor, scleral icterus Ear exam: PRESENT: normal external ear exam Mouth exam: PRESENT: moist Respiratory exam: PRESENT: decreased breath sounds - at lung bases Cardiovascular exam: PRESENT: RRR. ABSENT: diastolic murmur, rubs, systolic murmur GI/Abdominal exam: PRESENT: normal bowel sounds, soft. ABSENT: distended, guarding, mass, organomegaly, rebound, tenderness Extremities exam: ABSENT: pedal edema Neurological exam: PRESENT: alert, awake, oriented to person, oriented to place, oriented to time, oriented to situation, CN II-XII grossly intact. ABSENT: motor sensory deficit Psychiatric exam: PRESENT: appropriate affect, normal mood. ABSENT: homicidal ideation, suicidal ideation Skin exam: PRESENT: dry, warm Results Laboratory Results: 04/08/19 04:05 04/08/19 04:05 04/06/19 20:25 Troponin I 0.014 NT-Pro-B Natriuret Pep 259 Impressions: Chest X-Ray 04/06/19 20:23 IMPRESSION: No acute pulmonary findings. Qualifiers - * PATIENT BEING DISCHARGED WITH ANY OF THE FOLLOWING DIAGNOSIS: No Acute Heart Failure Is this a Heart Failure Patient?: No Plan Discharge Plan: D/C home today. Follow up in the office as instructed upon discharge.
== END 2019-04-10 13:30 | disposition home health service (06) | DRG 189 ==
LOC: ER 20:01 → EH 23:02 → 3N 04-07 01:16
PROVIDERS: ADMIT Internal Medicine Geriatric Medicine; ATTEND Internal Medicine Geriatric Medicine
DX: J96.21 Acute and chronic respiratory failure with hypoxia (principal); J44.1 Chronic obstructive pulmonary disease with (acute) exacerbation; E87.2 Acidosis; F11.20 Opioid dependence, uncomplicated; J96.22 Acute and chronic respiratory failure with hypercapnia; I10 Essential (primary) hypertension; K21.9 Gastro-esophageal reflux disease without esophagitis; E78.00 Pure hypercholesterolemia, unspecified; E03.9 Hypothyroidism, unspecified; G89.29 Other chronic pain; Z66 Do not resuscitate; Z79.82 Long term (current) use of aspirin; Z79.51 Long term (current) use of inhaled steroids; Z79.52 Long term (current) use of systemic steroids; Z79.899 Other long term (current) drug therapy
CPT/HCPCS: 36415; 36600; 71045; 80053; 82803; 83605; 83880; 84484; 85025; 93005; 93010; 94640; 94660; 99291; J1650; J2920; J2930; J3490; J7030; S0164